=== PATIENT | female | born 1955 | race Caucasian/White ===

== ENCOUNTER → 2017-08-29 | Outpatient (CLI) | payer MEDICARE, OTHER ==
--- NOTE | 2017-08-29 15:01 | RADIOLOGY REPORT (SQ) ---
EXAM DESCRIPTION: FOOT RIGHT COMPLETE COMPLETED DATE/TIME: 08/29/2017 2:48 pm REASON FOR STUDY: NON-PRS CHRONIC ULCER OTH PRT RIGHT FOOT W FAT LAYER EXPOSED J93.9 PNEUMOTHORAX, UNSPECIFIED L97.512 NON-PRS CHRONIC ULCER OTH PRT RIGHT FOOT W FAT LAYER COMPARISON: None. NUMBER OF VIEWS: Three views. TECHNIQUE: AP, lateral and oblique radiographic images acquired of the right foot. LIMITATIONS: None. FINDINGS: Bones are osteopenic. Patient is post transmetatarsal amputation of the great toe. This small stump remains along the base of the 1st metatarsal. No aggressive bony demineralization or periosteal new bone worrisome for ost eomyelitis. There is a soft tissue ulcer with radiopaque ointment plantar aspect ball of foot along the 2nd metat arsal head. There is resorption of the 2nd metatarsal head and base proximal phalanx worrisome for o steomyelitis. There is bony remodeling without aggressive demineralization or periosteal new bone along the 3rd 4th and 5th metatarsals and phalanges likely related to old infection/osteomyelitis Moderate size plantar calcaneal spur. Hindfoot, ankle are unremarkable IMPRESSION: Soft tissue ulcer with radiopaque ointment plantar aspect ball of foot along the 2nd met atarsal head. Resorption of the 2nd metatarsal head and base proximal phalanx worrisome for osteomye litis TECHNICAL DOCUMENTATION: JOB ID: [id number] [employer]- All Rights Reserved Reading location - IP/workstation name: [email or web address]
--- NOTE | 2017-08-29 15:05 | RADIOLOGY REPORT (SQ) ---
EXAM DESCRIPTION: CHEST PA/LATERAL COMPLETED DATE/TIME: 08/29/2017 2:48 pm REASON FOR STUDY: PNEUMOTHORAX,UNSPECIFIED COMPARISON: None. EXAM PARAMETERS: NUMBER OF VIEWS: two views TECHNIQUE: Digital Frontal and Lateral radiographic views of the chest acquired. RADIATION DOSE: NA LIMITATIONS: none FINDINGS: LUNGS AND PLEURA: No opacities, masses or pneumothorax. No pleural effusion. MEDIASTINUM AND HILAR STRUCTURES: No masses or contour abnormalities. HEART AND VASCULAR STRUCTURES: Heart normal size. No evidence for failure. BONES: Mild convex rightward thoracic curvature HARDWARE: None in the chest. OTHER: No other significant finding. IMPRESSION: NO SIGNIFICANT RADIOGRAPHIC FINDING IN THE CHEST. NO PNEUMOTHORAX TECHNICAL DOCUMENTATION: JOB ID: [id number] [employer]- All Rights Reserved Reading location - IP/workstation name: [email or web address]
== END ==
LOC: OD 14:30
PROVIDERS: ATTEND Preventive Medicine Undersea and Hyperbaric Medicine
DX: J93.9 Pneumothorax, unspecified (principal); L97.512 Non-pressure chronic ulcer of other part of right foot with fat layer exposed
CPT/HCPCS: 71046

== ENCOUNTER → 2017-09-03 | Outpatient (CLI) | payer MEDICARE, OTHER ==
--- NOTE | 2017-09-04 18:08 | XCELERA REPORT ---
[address] [address] Lower Extremity Arterial Evaluation Name: MARCELA MARSHALL Age: 62 yrs Gender: Female : 1955 Patient Status: Outpatient Patient Location: Study Date: 09/03/2017 08:08 AM Procedure: A color flow and duplex scan of the lower extremity arteries was performed bilaterally with velocity and waveform anaylsis. Reason For Study: RT FOOT ULCER Ordering Physician: JING MORENO Performed By: Phill Cisneros Measurements and Calculations Right Left CREATIVE SERVICES COORDINATOR PSV 71.7 71.7 cm/sec Prox PFA PSV -53.1 -45.2 cm/sec Prox SFA PSV 88.4 77.7 cm/sec Mid SFA PSV -81.0 -87.7 cm/sec Dist SFA PSV -162.4 -103.7 cm/sec Prox Pop A PSV 71.2 cm/sec Dist YAAHIRA PSV 96.2 cm/sec Dist PAYMENT ANALYST PSV 130.7 cm/sec Onel Pedis PSV 45.6 cm/sec Right Side Arterial Evaluation Normal velocity and triphasic waveforms noted from the Common Femoral artery to the infrageniculate vessels. Biphasic in the Dorsalis Pedis. 0-19% stenosis noted. Dorsalis Pedis. Ankle Brachial index is 1.2. Left Side Arterial Evaluation Normal velocity and triphasic waveforms noted from the Common Femoral artery to the Femoral artery. Below Knee amputation noted. 0% stenosis noted. Dorsalis Pedis. Ankle Brachial index not applicable. Interpretation Summary Mild hemodynamically significant lesions in the right lower extremity only, on duplex imaging, at rest. Normal findings in the remaining left lower extremity. : JING MORENO > Rayo Steen
== END ==
LOC: SP 07:28
PROVIDERS: ATTEND Preventive Medicine Undersea and Hyperbaric Medicine
DX: L97.512 Non-pressure chronic ulcer of other part of right foot with fat layer exposed (principal)
CPT/HCPCS: 93922; 93925

== ENCOUNTER → 2017-10-04 | Outpatient (CLI) | payer MEDICARE, OTHER ==
--- NOTE | 2017-10-04 15:06 | RADIOLOGY REPORT (SQ) ---
EXAM DESCRIPTION: FOOT RIGHT COMPLETE COMPLETED DATE/TIME: 10/04/2017 12:42 pm REASON FOR STUDY: NON-PRS CHRONIC ULCER OTH PRT RIGHT FOOT W FAT LAYER EXPOSED L97.512 NON-PRS LEAD WELDER JOEL ULCER OTH PRT RIGHT FOOT W FAT LAYER E11.621 TYPE 2 DIABETES MELLITUS WITH FOOT ULCER COMPARISON: 08/29/2017 NUMBER OF VIEWS: Three views. TECHNIQUE: AP, lateral and oblique without weight bearing radiographic images acquired of the right foot. LIMITATIONS: None. FINDINGS: MINERALIZATION: Osteopenia. BONES: Chronic deformity which is stable. No findings to suggest osteomyelitis. Partial amputation o f the 1st ray. JOINTS: No erosions. No ketan-articular osteopenia. No chondrocalcinosis. SOFT TISSUES: No swelling. No calcifications. OTHER: No other significant finding. IMPRESSION: No evidence for osteomyelitis. Stable chronic deformity. TECHNICAL DOCUMENTATION: JOB ID: [id number] [employer]- All Rights Reserved Reading location - IP/workstation name: [email or web address]
== END ==
LOC: OD 12:29
PROVIDERS: ATTEND Preventive Medicine Undersea and Hyperbaric Medicine
DX: E11.621 Type 2 diabetes mellitus with foot ulcer (principal); L97.512 Non-pressure chronic ulcer of other part of right foot with fat layer exposed

== ENCOUNTER 2018-09-13 14:51 | Emergency (ER) | payer MEDICARE, OTHER ==
--- NOTE | 2018-09-13 15:24 | ER Document Report ---
ED General - General Chief Complaint: Loss of Vision Stated Complaint: BLURRED VISION Time Seen by Provider: 09/13/18 15:11 Primary Care Provider: JING MORENO DPM [ACTIVE STAFF] - Follow up as needed Notes: 63-year-old female patient emergency department chief complaint of woke up this morning blind. Patient has diabetes, hypertension. Has had some issues with the eyes before but she does not know what it was called. States that she has no pain. Denies any weakness or other issues. Denies any headache. Denies any weakness of the upper or lower extremities. Has never had a stroke. TRAVEL OUTSIDE OF THE [place] IN LAST 30 DAYS: No - HPI Onset: This morning Onset/Duration: Worse Quality of pain: No pain Severity: Severe Pain Level: Denies Associated symptoms: None - Related Data Allergies/Adverse Reactions: No Known Allergies Allergy (Verified 09/13/18 14:56) Past Medical History - General Information source: Patient - Social History Smoking Status: Smoker,Current Status Unk Frequency of alcohol use: None Drug Abuse: None Lives with: Family Family History: Reviewed & Not Pertinent - Medical History Notes: Diabetes, hypertension, diabetic eye related issues Review of Systems - Review of Systems Notes: Constitutional: denies: Chills, Diaphoresis, Fever, Malaise, Weakness EENT: No difficulty with hearing, no difficulty swallowing. Does complain of painless bilateral vision loss. Cardiovascular: denies: Palpitations, Heart racing, Orthopnea, Dyspnea, Chest pain Respiratory: denies: Cough, Hurts to breathe, Wheezing, Shortness of breath Gastrointestinal: denies: Abdominal pain, Diarrhea, Nausea, Vomiting, Black stools, bright red blood in stool Genitourinary: denies: Burning, Dysuria, Discharge, Frequency, Flank pain, Hematuria Musculoskeletal: denies: Joint pain, Joint swelling, Muscle pain, Muscle stiffness, back pain Hematologic/Lymphatic: denies: Anemia, Easy bleeding, Easy bruising, Blood clots Neurological/Psychological: denies: Confusion, Dementia, Depression, Loss of consciousness Skin: No lesions, no masses, no skin breakdown, no abscesses Physical Exam - Vital signs Vitals: Temp Pulse Resp BP Pulse Ox 99.1 F 124 H 20 179/84 H 95 09/13/18 15:02 09/13/18 15:02 09/13/18 15:02 09/13/18 15:02 09/13/18 15:02 Interpretation: Hypertensive - General General appearance: Appears well, Alert - HEENT Head: Normocephalic, Atraumatic Eyes: Normal Pupils: PERRL Notes: Patient has cataract surgery. There appears to be more of a hyper red appearance to the bilateral retina. - Respiratory Respiratory status: No respiratory distress Chest status: Nontender Breath sounds: Normal Chest palpation: Normal - Cardiovascular Rhythm: Regular Heart sounds: Normal auscultation Murmur: No - Abdominal Inspection: Normal Distension: No distension Bowel sounds: Normal Tenderness: Nontender Organomegaly: No organomegaly - Back Back: Normal, Nontender - Extremities General upper extremity: Normal inspection, Nontender, Normal color, Normal ROM, Normal temperature General lower extremity: Normal inspection, Nontender, Normal color, Normal ROM, Normal temperature, Normal weight bearing. No: Luiza's sign - Neurological Neuro grossly intact: Yes Cognition: Normal Orientation: AAOx4 Nebo Coma Scale Eye Opening: Spontaneous Nebo Coma Scale Verbal: Oriented Nebo Coma Scale Motor: Obeys Commands Nebo Coma Scale Total: 15 Speech: Normal Cranial nerves: Normal Cerebellar coordination: Normal Motor strength normal: LUE, RUE, LLE, RLE Additional motor exam normals: Equal vest baster Sensory: Normal - Psychological Associated symptoms: Normal affect, Normal mood - Skin Skin Temperature: Warm Skin Moisture: Dry Skin Color: Normal Course - Re-evaluation Re-evalutation: 09/13/18 19:11 Laboratory 09/13/18 09/13/18 09/13/18 15:24 15:24 15:24 WBC 5.8 RBC 4.72 Hgb 14.9 Hct 42.6 MCV 90 MCH 31.5 MCHC 34.9 RDW 13.5 Plt Count 274 Seg Neutrophils % 64.0 Lymphocytes % 25.9 Monocytes % 6.2 Eosinophils % 3.1 Basophils % 0.8 Absolute Neutrophils 3.7 Absolute Lymphocytes 1.5 Absolute Monocytes 0.4 Absolute Eosinophils 0.2 Absolute Basophils 0.0 PT 12.4 INR 0.88 APTT 29.3 Sodium 138.9 Potassium 4.3 Chloride 102 Carbon Dioxide 26 Anion Gap 11 BUN 20 Creatinine 0.64 Est GFR ( Amer) > 60 Est GFR (Non-Af Amer) > 60 Glucose 295 H POC Glucose Calcium 10.5 H Total Bilirubin 0.6 Direct Bilirubin 0.4 Neonat Total Bilirubin Not Reportable Neonat Direct Bilirubin Not Reportable Neonat Indirect Bili Not Reportable AST 37 H ALT 37 Alkaline Phosphatase 69 Creatine Kinase 26 L CK-MB (CK-2) Troponin I Total Protein 7.1 Albumin 4.3 09/13/18 09/13/18 15:24 15:35 WBC RBC Hgb Hct MCV MCH MCHC RDW Plt Count Seg Neutrophils % Lymphocytes % Monocytes % Eosinophils % Basophils % Absolute Neutrophils Absolute Lymphocytes Absolute Monocytes Absolute Eosinophils Absolute Basophils PT INR APTT Sodium Potassium Chloride Carbon Dioxide Anion Gap BUN Creatinine Est GFR ( Amer) Est GFR (Non-Af Amer) Glucose POC Glucose 293 H Calcium Total Bilirubin Direct Bilirubin Neonat Total Bilirubin Neonat Direct Bilirubin Neonat Indirect Bili AST ALT Alkaline Phosphatase Creatine Kinase CK-MB (CK-2) 0.25 Troponin I < 0.012 Total Protein Albumin Chest X-Ray 09/13/18 15:09 IMPRESSION: NO ACUTE RADIOGRAPHIC FINDING IN THE CHEST. Head CT 09/13/18 15:09 IMPRESSION: MILD CHRONIC CHANGES OF ATROPHY AND MICROVASCULAR ISCHEMIA. NO ACUTE PROCESS. EVIDENCE OF ACUTE STROKE: NO. Head MRI 09/13/18 15:40 IMPRESSION: 1. No acute intracranial findings. 2. Minimal chronic microvascular ischemic disease. EVIDENCE OF ACUTE STROKE: NO. Bilateral tonometry performed. Pressures are 17 bilaterally. I am more concerned about a retinal vein occlusion. Will attempt to contact ophthalmology in [place] as patient has seen a doctor there. 09/13/18 19:13 09/13/18 19:[address] Guillen at this [facility] who has seen the patient in the past. He states that it has been over 2 years since he has seen her and he has nothing to offer at this time. He is not wardrobe consultant and request that I call the on-call box office manager. Waiting for callback from on- call box office manager at this time. 09/13/18 20:05 I did speak with Dr. Bowers at [facility]. He has accepted the patient for transfer. Once patient sent to the ER. I have spoken with the ER physician, Dr. Brooks. 09/13/18 20:08 09/13/18 20:56 Transport is here. Patient remained stable for transport at this time. - Vital Signs Vital signs: Temp Pulse Resp BP Pulse Ox 99.1 F 90 22 H 164/82 H 93 09/13/18 15:02 09/13/18 18:00 09/13/18 20:22 09/13/18 20:22 09/13/18 20:22 - Laboratory Result Diagrams: 09/13/18 15:24 09/13/18 15:24 Laboratory results interpreted by me: 09/13/18 09/13/18 15:24 15:35 Glucose 295 H POC Glucose 293 H Calcium 10.5 H AST 37 H Creatine Kinase 26 L - EKG Interpretation by Me EKG shows normal: Intervals, QRS Complexes, ST-T Waves. abnormal: [place] - Right axis deviation Rate: Tachycardia Critical Care Note - Critical Care Note Total time excluding time spent on procedures (mins): 60 Comments: Acute vision loss, hypertensive, hyper glycemic, consultation with specialist, coordination of transfer of care. Discharge - Discharge Clinical Impression: Bilateral visual loss Hyperglycemia due to type 2 diabetes mellitus Qualifiers: Diabetes mellitus chcf insulin use: with chcf use Qualified Code(s): E11.65 - Type 2 diabetes mellitus with hyperglycemia Hypertension Qualifiers: Hypertension type: unspecified Qualified Code(s): I10 - Essential (primary) hypertension Condition: Good Disposition: [facility] Referrals: JING MORENO DPM [ACTIVE STAFF] - Follow up as needed
--- NOTE | 2018-09-13 15:30 | RADIOLOGY REPORT (SQ) ---
EXAM DESCRIPTION: CT HEAD WITHOUT COMPLETED DATE/TIME: 09/13/2018 3:17 pm REASON FOR STUDY: t1 stroke alert loss of vision COMPARISON: None. TECHNIQUE: Axial images acquired through the brain without intravenous contrast. Images reviewed wi th bone, brain and subdural windows. Additional sagittal and coronal reconstructions were generated. Images stored on PACS. All CT scanners at this facility use dose modulation, iterative reconstruction, and/or weight based d osing when appropriate to reduce radiation dose to as low as reasonably achievable (ALARA). [facility]: Dose Right [facility]: CareDose [facility]: Dose Right [facility]: Teradose 4D [facility]: Smart CompassMD RADIATION DOSE: CT Rad equipment meets quality standard of care and radiation dose reduction techniq ues were employed. CTDIvol: 53.2 mGy. DLP: 964 mGy-cm. mGy. LIMITATIONS: None. FINDINGS: VENTRICLES: Prominent. CEREBRUM: No masses. No hemorrhage. No midline shift. Areas of low density in the white matter mos t likely due to chronic micro-vascular ischemic change. No evidence for acute infarction. CEREBELLUM: No masses. No hemorrhage. No alteration of density. No evidence for acute infarction. EXTRAAXIAL SPACES: Mild age-related involutional change. No fluid collections. No masses. ORBITS AND GLOBE: No intra- or extraconal masses. Normal contour of globe without masses. CALVARIUM: No fracture. PARANASAL SINUSES: No fluid or mucosal thickening. SOFT TISSUES: No mass or hematoma. OTHER: No other significant finding. IMPRESSION: MILD CHRONIC CHANGES OF ATROPHY AND MICROVASCULAR ISCHEMIA. NO ACUTE PROCESS. EVIDENCE OF ACUTE STROKE: NO. COMMENT: Pertinent positive or negative findings of the imaging study reported as a CRITICAL EXAM tej RILEY DO at15:23 on 09/13/2018. Category of Critical Exam: Stroke alert TECHNICAL DOCUMENTATION: JOB ID: [id number] Quality ID # [id number]: Final reports with documentation of one or more dose reduction techniques (e.g., Au tomated exposure control, adjustment of the mA and/or kV according to patient size, use of iterative reconstruction technique) 2010 [employer]- All Rights Reserved Reading location - IP/workstation name: [email or web address]
[2018-09-13 15:41] LABS: ABSOLUTE EOSINOPHILS # (AUTO) 0.2 10^3/uL (0.0-0.6); ABSOLUTE LYMPHOCYTES (AUTO) 1.5 10^3/uL (0.5-4.7); ABSOLUTE MONOCYTES (AUTO) 0.4 10^3/uL (0.1-1.4); ABSOLUTE NEUT (AUTO) 3.7 10^3/uL (1.7-8.2); BASOPHILS % (AUTO) 0.8 % (0-2); EOSINOPHILS % (AUTO) 3.1 % (0-6); HEMATOCRIT 42.6 % (36.0-47.0); HEMOGLOBIN 14.9 g/dL (12.0-15.5); INTERNATIONAL RATION (INR) 0.88; LYMPHOCYTES % (AUTO) 25.9 % (13-45); MEAN CORPUSCULAR HEMOGLOBIN 31.5 pg (27.0-33.4); MEAN CORPUSCULAR HGB CONC 34.9 g/dL (32.0-36.0); MEAN CORPUSCULAR VOLUME 90 fl (80-97); MONOCYTES % (AUTO) 6.2 % (3-13); PLATELET COUNT 274 10^3/uL (150-450); PROTHROMBIN TIME 12.4 SEC (11.4-15.4); RED BLOOD COUNT 4.72 10^6/uL (3.72-5.28); RED CELL DISTRIBUTION WIDTH 13.5 % (11.5-14.0); TOTAL CELLS COUNTED % (AUTO) 100 %; WHITE BLOOD COUNT 5.8 10^3/uL (4.0-10.5)
[2018-09-13 15:42] LABS: PARTIAL THROMBOPLASTIN TIME 29.3 SEC (23.5-35.8)
--- NOTE | 2018-09-13 15:43 | RADIOLOGY REPORT (SQ) ---
EXAM DESCRIPTION: CHEST SINGLE VIEW COMPLETED DATE/TIME: 09/13/2018 3:20 pm REASON FOR STUDY: t1 stroke alert loss of vision COMPARISON: 08/29/2017 EXAM PARAMETERS: NUMBER OF VIEWS: One view. TECHNIQUE: Single frontal radiographic view of the chest acquired. RADIATION DOSE: NA LIMITATIONS: None. FINDINGS: LUNGS AND PLEURA: Chronic elevation right diaphragm. No opacities, masses or pneumothorax . No pleural effusion. MEDIASTINUM AND HILAR STRUCTURES: No masses. Contour normal. HEART AND VASCULAR STRUCTURES: Heart normal in size. Normal vasculature. BONES: No acute findings. HARDWARE: None in the chest. OTHER: No other significant finding. IMPRESSION: NO ACUTE RADIOGRAPHIC FINDING IN THE CHEST. TECHNICAL DOCUMENTATION: JOB ID: [id number] [employer]- All Rights Reserved Reading location - IP/workstation name: [email or web address]
--- NOTE | 2018-09-13 16:02 | EKG REPORT ---
SEVERITY:- ABNORMAL ECG - SINUS TACHYCARDIA RIGHT AXIS DEVIATION PAC PROBABLE INFERIOR INFARCT, AGE INDETERMINATE CONSIDER ANTERIOR INFARCT : Confirmed by: Mike Coates MD 13-Sep-2018 16:01:09
[2018-09-13 16:06] LABS: ALANINE AMINOTRANSFERASE 37 U/L (9-52); ALBUMIN 4.3 g/dL (3.5-5.0); ALKALINE PHOSPHATASE 69 U/L (38-126); ANION GAP 11 (5-19); ASPARTATE AMINO TRANSFERASE 37 U/L (14-36); BILIRUBIN,DIRECT 0.4 mg/dL (0.0-0.4); BILIRUBIN,TOTAL 0.6 mg/dL (0.2-1.3); BLOOD UREA NITROGEN 20 mg/dL (7-20); CALCIUM 10.5 mg/dL (8.4-10.2); CARBON DIOXIDE 26 mmol/L (22-30); CHLORIDE 102 mmol/L (98-107); CREATINE KINASE 26 U/L (30-135); GLUCOSE 295 mg/dL (75-110); POTASSIUM 4.3 mmol/L (3.6-5.0); SODIUM 138.9 mmol/L (137-145); TOTAL PROTEIN 7.1 g/dL (6.3-8.2)
[2018-09-13 16:15] LABS: CREATINE KINASE MB 0.25 ng/mL (<4.55)
[2018-09-13 16:16] LABS: TROPONIN I < 0.012 ng/mL
[2018-09-13] MEDS ORDERED: ASPIRIN 81 MG TABLET, CHEWABLE PO ONE (16:41)
--- NOTE | 2018-09-13 17:42 | RADIOLOGY REPORT (SQ) ---
EXAM DESCRIPTION: MRI HEAD WITHOUT COMPLETED DATE/TIME: 09/13/2018 5:30 pm REASON FOR STUDY: bilateral vision loss COMPARISON: Same day CT head TECHNIQUE: Multiplanar imaging includes non-contrasted T1, T2, FLAIR, and diffusion with ADC map seq uences. Images stored on PACS. LIMITATIONS: None. FINDINGS: ANATOMY: No anomalies. Normal vascular flow voids. Pituitary fossa normal. CSF SPACES: Normal in size and contour. No hemorrhage. CEREBRUM: Sulci and gyri normal in size and contour. Minimal FLAIR/ T2 hyperintense signal in the martin pratentorial white matter. . No evidence of hemorrhage, mass, or extraaxial fluid collection. POSTERIOR FOSSA: No signal alteration. No hemorrhage. No edema, masses or mass effect. Internal isabela tory canals, cerebello-pontine angles, mastoids normal. DIFFUSION IMAGING: Negative for acute or sub-acute infarction. ORBITS: No masses. Globes normal. Normal signal within the optic nerves. PARANASAL SINUSES: No fluid levels. Mucosa normal. OTHER: Trace amount of fluid within left mastoid air cells. IMPRESSION: 1. No acute intracranial findings. 2. Minimal chronic microvascular ischemic disease. EVIDENCE OF ACUTE STROKE: NO. TECHNICAL DOCUMENTATION: JOB ID: [id number] [employer]- All Rights Reserved Reading location - IP/workstation name: [email or web address]
[2018-09-13] MEDS ORDERED: TETRACAINE HCL 0.5% OPH SOLN 4 ML ONE (18:33)
[2018-09-13] MEDS ORDERED: TETRACAINE HCL 0.5% OPH SOLN 4 ML OD ONE (18:49)
[2018-09-13] MEDS ORDERED: ENALAPRIL MALEATE 10 MG TABLET PO ONE (19:14)
[2018-09-13] MEDS ORDERED: NORMAL SALINE 1000 ML 1,000 ML IV ONE (19:14)
[2018-09-13] MEDS ORDERED: METFORMIN HCL 500 MG TABLET PO ONE (19:14)
[2018-09-13 20:24] VITALS: BP 164/82
== END 2018-09-13 21:10 | disposition short-term general hospital (02) ==
LOC: ER 14:51
DX: H54.3 Unqualified visual loss, both eyes (principal); E11.65 Type 2 diabetes mellitus with hyperglycemia; I10 Essential (primary) hypertension
CPT/HCPCS: 93005; 99291; 96360; 36415; 82553; 82962; 82550; 85025; 85610; 85730; 80053; 84484; 70551; 71045; 70450; 93010; A9270 ×3; J7030; J3490

== ENCOUNTER 2019-12-27 03:26 | Inpatient (IN) | payer MEDICARE, OTHER ==
[2019-12-27 04:25] LABS: ABSOLUTE BASOPHILS # (AUTO) 0.1 10^3/uL (0.0-0.2); ABSOLUTE EOSINOPHILS # (AUTO) 0.2 10^3/uL (0.0-0.6); ABSOLUTE LYMPHOCYTES (AUTO) 2.1 10^3/uL (0.5-4.7); ABSOLUTE NEUT (AUTO) 9.6 10^3/uL (1.7-8.2); EOSINOPHILS % (AUTO) 1.7 % (0-6); HEMATOCRIT 41.7 % (36.0-47.0); HEMOGLOBIN 14.1 g/dL (12.0-15.5); LYMPHOCYTES % (AUTO) 16.3 % (13-45); MEAN CORPUSCULAR HEMOGLOBIN 30.4 pg (27.0-33.4); MEAN CORPUSCULAR HGB CONC 33.8 g/dL (32.0-36.0); MEAN CORPUSCULAR VOLUME 90 fl (80-97); MONOCYTES % (AUTO) 7.9 % (3-13); PLATELET COUNT 423 10^3/uL (150-450); RED BLOOD COUNT 4.63 10^6/uL (3.72-5.28); RED CELL DISTRIBUTION WIDTH 13.5 % (11.5-14.0); SEGMENTED NEUTROPHILS % (AUTO) 73.1 % (42-78); TOTAL CELLS COUNTED % (AUTO) 100 %; WHITE BLOOD COUNT 13.1 10^3/uL (4.0-10.5)
[2019-12-27 04:51] LABS: ALKALINE PHOSPHATASE 87 U/L (38-126); ANION GAP 12 (5-19); ASPARTATE AMINO TRANSFERASE 24 U/L (14-36); BILIRUBIN,TOTAL 0.4 mg/dL (0.2-1.3); BLOOD UREA NITROGEN 31 mg/dL (7-20); CALCIUM 9.6 mg/dL (8.4-10.2); CARBON DIOXIDE 22 mmol/L (22-30); CHLORIDE 99 mmol/L (98-107); GLUCOSE 230 mg/dL (75-110); TOTAL PROTEIN 7.3 g/dL (6.3-8.2)
[2019-12-27] MEDS ORDERED: VANCOMYCIN HCL INJ 1000 MG VIAL IV ONE (05:40)
[2019-12-27] MEDS ORDERED: PIPERACILLIN/TAZOBACTAM 3.375 GM VIAL IV ONE (05:41)
--- NOTE | 2019-12-27 06:31 | RADIOLOGY REPORT (SQ) ---
EXAM DESCRIPTION: XR FINGERS COMPLETED DATE/TME: 12/27/2019 05:37 CLINICAL HISTORY: 64 years, Female, INFECTED RIGHT THUMB COMPARISON: None. NUMBER OF VIEWS: Three TECHNIQUE: Three views of the right thumb LIMITATIONS: None. FINDINGS: Bones are demineralized. There is no acute fracture, dislocation, erosion, periosteal reaction. There is soft tissue swelling. There is a 1.7 x 1.2 x 0.8 cm soft tissue density along the radial volar aspect of the left thumb which may represent a hematoma or abscess. IMPRESSION: No radiographic evidence of osteomyelitis. Soft tissue swelling with a soft tissue density which may represent a hematoma or abscess. copyright 2010 [employer] All Rights Reserved
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
[2019-12-27] MEDS ORDERED: LIDOCAINE 1% INJ-PF (10 MG/ML) 30 ML SDV INJ ONE (07:49)
[2019-12-27] MEDS ORDERED: ONDANSETRON HCL INJ/PF 4 MG/2 ML SDV IV PRN (10:04)
[2019-12-27] MEDS ORDERED: OXYCODONE-ACETAMINOPHEN 5-325 MG TABLET PO PRN (10:04)
[2019-12-27] MEDS ORDERED: DEXTROSE 50%-WATER 25 GM/50 ML DISP.SYRIN IV PRN ×2 (10:09)
[2019-12-27] MEDS ORDERED: DEXTROSE 40% GEL 15 GM TUBE PO PRN ×2 (10:09)
[2019-12-27] MEDS ORDERED: GLUCAGON,HUMAN RECOMB 1 MG INJ IM PRN (10:09)
--- NOTE | 2019-12-27 10:32 | PDOC H&P ---
History of Present Illness Admission Date/PCP: 12/27/2019 Patient complains of: Came with complaints of right thumb burn followed by infection. History of Present Illness: MARCELA MARSHALL is a 64 year old female with history of type 2 diabetes mellitus on insulin, obesity, hypertension, hypercholesterolemia, left BKA, right great toe amputation came to the emergency room with complaints of right thumb born 9 days ago. Noticed infection of the right thumb for the last 4 days. Decided to came to the emergency room for further evaluation in the emergency room debridement of the wound was done. ER physician noticed pussy material draining. Started on IV vancomycin and Zosyn medical consult was requested for further management. X-rays negative for osteo-. Dr. Almonte had a brief look at the patient as per him no need for surgical intervention at this time. Past Medical History Cardiac Medical History: Reports: Hypertension Endocrine Medical History: Reports: Diabetes Mellitus Type 2 Past Surgical History Past Surgical History: Reports: Orthopedic Surgery - Left BKA. Right Great toe amputation. Social History Lives with: Family Smoking Status: Never Smoker Electronic Cigarette use?: No - Advance Directive Resuscitation Status: Full Code Family History Family History: Reviewed & Not Pertinent Parental Family History Reviewed: Yes - Diabetes and hypertension Children Family History Reviewed: Yes Sibling(s) Family History Reviewed.: Yes Medication/Allergy Allergies/Adverse Reactions: No Known Allergies Allergy (Verified 09/13/18 14:56) Review of Systems Constitutional: PRESENT: fatigue, weakness. ABSENT: fever(s), headache(s), night sweats Eyes: ABSENT: visual disturbances Ears: ABSENT: hearing changes Nose, Mouth, and Throat: ABSENT: sore throat Respiratory: ABSENT: hemoptysis Gastrointestinal: ABSENT: dysphagia, heartburn, hematemesis Genitourinary: ABSENT: hematuria Musculoskeletal: ABSENT: joint swelling Integumentary: PRESENT: other - rt Thumb wound Neurological: ABSENT: abnormal gait, abnormal speech, confusion, dizziness, focal weakness, syncope Psychiatric: ABSENT: anxiety, depression, homidical ideation, suicidal ideation Endocrine: ABSENT: cold intolerance, heat intolerance, polydipsia, polyuria Hematologic/Lymphatic: ABSENT: easy bleeding, easy bruising Physical Exam Vital Signs: Temp Pulse Resp BP Pulse Ox 98.4 F 90 18 142/68 H 93 12/27/19 03:48 12/27/19 03:32 12/27/19 07:01 12/27/19 07:01 12/27/19 07:01 Intake & Output 12/26/19 12/27/19 12/28/19 06:59 06:59 06:59 Weight 91.2 kg General appearance: PRESENT: no acute distress, cooperative, obese Head exam: PRESENT: atraumatic Eye exam: PRESENT: PERRLA Ear exam: PRESENT: normal external ear exam Mouth exam: PRESENT: neck supple Teeth exam: PRESENT: poor dentation Neck exam: ABSENT: carotid bruit, JVD, lymphadenopathy, thyromegaly Respiratory exam: PRESENT: decreased breath sounds Cardiovascular exam: PRESENT: RRR. ABSENT: diastolic murmur, rubs, systolic murmur Pulses: PRESENT: normal dorsalis pedis pul GI/Abdominal exam: PRESENT: normal bowel sounds, soft. ABSENT: distended, guarding, mass, organolmegaly, rebound, tenderness Rectal exam: PRESENT: deferred Extremities exam: PRESENT: other - rt thumb wrapped in dressing. Neurological exam: PRESENT: alert, awake, oriented to person, oriented to place, oriented to time, oriented to situation, CN II-XII grossly intact. ABSENT: motor sensory deficit Psychiatric exam: PRESENT: appropriate affect, normal mood. ABSENT: homicidal ideation, suicidal ideation Skin exam: PRESENT: dry, intact, warm. ABSENT: cyanosis, rash Results Laboratory Results: 12/27/19 04:00 12/27/19 04:30 12/27/19 12/27/19 12/27/19 04:00 04:00 04:30 WBC 13.1 H RBC 4.63 Hgb 14.1 Hct 41.7 MCV 90 MCH 30.4 MCHC 33.8 RDW 13.5 Plt Count 423 Seg Neutrophils % 73.1 Sodium Cancelled 133.4 L Potassium Cancelled 4.0 Chloride Cancelled 99 Carbon Dioxide Cancelled 22 Anion Gap Cancelled 12 BUN Cancelled 31 H Creatinine Cancelled 0.87 Est GFR ( Amer) Cancelled > 60 Est GFR (Non-Af Amer) Cancelled Glucose Cancelled 230 H Calcium Cancelled 9.6 Total Bilirubin Cancelled 0.4 AST Cancelled 24 Alkaline Phosphatase Cancelled 87 Total Protein Cancelled 7.3 Albumin Cancelled 4.0 Impressions: Finger X-Ray 12/27/19 05:37 IMPRESSION: No radiographic evidence of osteomyelitis. Soft tissue swelling with a soft tissue density which may represent a hematoma or abscess. copyright 2010 [employer]- All Rights Reserved Assessment and Plan - Diagnosis (1) Abscess of thumb, right Is this a current diagnosis for this admission?: Yes Plan: 12/27/19-patient came in with abscess of the right thumb debridement of the wound was done in the emergency room, started on IV vancomycin and Zosyn medical consult was called for admission. Blood cultures are pending. Plan is to continue the IV antibiotic therapy and await for the blood cultures. Started on Percocet 03/12/2025 every 6 as needed. To restart her home medications. GI prophylaxis DVT prophylaxis initiated.WBC count is 13,000, receiving IV antibiotic therapy. (2) HTN (hypertension) Is this a current diagnosis for this admission?: No Plan: 12/27/2019-blood pressure today is 142/68. Stable. Patient is on Ziac, losartan at home plan is to continue the medications during the hospital stay. Looks like Ziac is nonformulary in this hospital. (3) Diabetes Qualifiers: Diabetes mellitus type: type 2 Is this a current diagnosis for this admission?: Yes Plan: 12/27/2019-patient has history of type 2 diabetes mellitus on insulin and m etformin at home. Blood sugar in the ER is 230. Started on insulin sliding scale and Lantus 20 units twice a day. Hemoglobin A1c is requested. Diet exercise weight loss lifestyle modifications discussed with the patient. (4) Obesity (BMI 30.0-34.9) Is this a current diagnosis for this admission?: No Plan: 12/27/2019-patient BMI is more than 32 diet exercise weight loss lifestyle modifications discussed with the patient. (5) Hyponatremia Is this a current diagnosis for this admission?: Yes Plan: 12/27/2019-serum sodium is 133.4 today. Glucose is 230. Corrected glucose within normal limits. (6) History of left below knee amputation Is this a current diagnosis for this admission?: No - Time Anticipated discharge: Home Within: within 72 hours
[2019-12-27] MEDS ORDERED: FENOFIBRATE NANOCRYSTALLIZED 145 MG TABLET PO ONE (11:00)
[2019-12-27] MEDS ORDERED: CETIRIZINE 5 MG TABLET PO ONE (11:00)
[2019-12-27] MEDS ORDERED: IPRATROPIUM/ALBUTEROL 0.5-2.5 MG/3 ML AMPUL NEB ONE (11:00)
[2019-12-27] MEDS ORDERED: PIPERACILLIN/TAZOBACTAM 3.375 GM VIAL IV SCH (12:00)
[2019-12-27] MEDS: INSULIN REG, HUMAN 100 UNIT/ML 3 ML VIAL (PYX) SUBCUT SCH ×3 (12:32→21:47)
[2019-12-27] MEDS: PIPERACILLIN SODIUM/TAZOBACTAM 3.375 GM in NORMAL SALINE 100 ML IV SCH ×2 (14:13→20:42)
[2019-12-27] MEDS: HEPARIN SOD (PORCINE) 5,000 UNIT/ML 1 ML VIAL SUBCUT SCH ×2 (14:14→21:48)
[2019-12-27] MEDS: NORMAL SALINE 1000 ML 1,000 ML IV PRN (16:19)
[2019-12-27] MEDS: VANCOMYCIN HCL 1,000 MG in DEXTROSE 5%-WATER 250 ML IV SCH (17:31)
[2019-12-27] MEDS ORDERED: VANCOMYCIN HCL INJ 1000 MG VIAL IV SCH (18:00)
[2019-12-27] MEDS: ATORVASTATIN CALCIUM 20 MG TABLET PO SCH (21:40)
[2019-12-27] MEDS ORDERED: INSULIN GLARGINE,HUM.REC.ANLOG 1,000 UNIT/10 ML VIAL (PYX) SUBCUT ONE (21:45)
[2019-12-27] MEDS ORDERED: INSULIN REG, HUMAN 100 UNIT/ML 3 ML VIAL (PYX) SUBCUT ONE (22:00)
[2019-12-27] MEDS ORDERED: INSULIN GLARGINE,HUM.REC.ANLOG 1,000 UNIT/10 ML VIAL SUBCUT SCH ×2 (22:00)
[2019-12-28] MEDS: PIPERACILLIN SODIUM/TAZOBACTAM 3.375 GM in NORMAL SALINE 100 ML IV SCH ×4 (02:19→20:29)
[2019-12-28] MEDS: HEPARIN SOD (PORCINE) 5,000 UNIT/ML 1 ML VIAL SUBCUT SCH ×3 (05:46→21:22)
[2019-12-28] MEDS: PANTOPRAZOLE SODIUM 40 MG TABLET.DR PO SCH (05:46)
[2019-12-28] MEDS: VANCOMYCIN HCL 1,000 MG in DEXTROSE 5%-WATER 250 ML IV SCH ×2 (05:47→18:23)
[2019-12-28 06:20] LABS: ABSOLUTE BASOPHILS # (AUTO) 0.1 10^3/uL (0.0-0.2); ABSOLUTE EOSINOPHILS # (AUTO) 0.1 10^3/uL (0.0-0.6); ABSOLUTE LYMPHOCYTES (AUTO) 1.4 10^3/uL (0.5-4.7); ABSOLUTE MONOCYTES (AUTO) 0.7 10^3/uL (0.1-1.4); ABSOLUTE NEUT (AUTO) 4.5 10^3/uL (1.7-8.2); BASOPHILS % (AUTO) 0.8 % (0-2); EOSINOPHILS % (AUTO) 2.1 % (0-6); HEMATOCRIT 38.1 % (36.0-47.0); HEMOGLOBIN 12.9 g/dL (12.0-15.5); LYMPHOCYTES % (AUTO) 21.1 % (13-45); MEAN CORPUSCULAR HEMOGLOBIN 30.6 pg (27.0-33.4); MEAN CORPUSCULAR HGB CONC 33.9 g/dL (32.0-36.0); MEAN CORPUSCULAR VOLUME 90 fl (80-97); MONOCYTES % (AUTO) 10.4 % (3-13); PLATELET COUNT 320 10^3/uL (150-450); RED BLOOD COUNT 4.23 10^6/uL (3.72-5.28); RED CELL DISTRIBUTION WIDTH 13.6 % (11.5-14.0); SEGMENTED NEUTROPHILS % (AUTO) 65.6 % (42-78); TOTAL CELLS COUNTED % (AUTO) 100 %; WHITE BLOOD COUNT 6.8 10^3/uL (4.0-10.5)
[2019-12-28 07:00] LABS: ALBUMIN 3.6 g/dL (3.5-5.0); ALKALINE PHOSPHATASE 74 U/L (38-126); ANION GAP 8 (5-19); ASPARTATE AMINO TRANSFERASE 18 U/L (14-36); BILIRUBIN,TOTAL 0.4 mg/dL (0.2-1.3); BLOOD UREA NITROGEN 22 mg/dL (7-20); CALCIUM 9.2 mg/dL (8.4-10.2); CARBON DIOXIDE 24 mmol/L (22-30); CHLORIDE 104 mmol/L (98-107); GLUCOSE 345 mg/dL (75-110); POTASSIUM 4.5 mmol/L (3.6-5.0); TOTAL PROTEIN 6.7 g/dL (6.3-8.2)
[2019-12-28] MEDS ORDERED: ONDANSETRON HCL INJ/PF 4 MG/2 ML SDV IV PRN (07:30)
[2019-12-28] MEDS: INSULIN REG, HUMAN 100 UNIT/ML 3 ML VIAL (PYX) SUBCUT SCH ×4 (08:31→21:21)
--- NOTE | 2019-12-28 09:32 | PDOC PROGRESS REPORT ---
Subjective Progress Note for:: 12/28/19 Subjective:: 64 year old female with history of type 2 diabetes mellitus on insulin, obesity, hypertension, hypercholesterolemia, left BKA, right great toe amputation came to the emergency room with complaints of right thumb born 9 days ago. Noticed infection of the right thumb for the last 4 days. Decided to came to the emergency room for further evaluation in the emergency room debridement of the wound was done. ER physician noticed pussy material draining. Started on IV vancomycin and Zosyn medical consult was requested for further management. X- rays negative for osteo-. Dr. Almonte had a brief look at the patient as per him no need for surgical intervention at this time. 12/[id number]-gkix-old female admitted with right thumb cellulitis. Receiving IV vancomycin and Zosyn. Blood cultures are pending. Receiving daily dressings. Sugars are high she is receiving Lantus 30 units twice a day and insulin sliding scale. To increase the Lantus to 35 units twice a day and continue the scale. Patient also has chronic wound on the bottom of the right heel. Stage I. Not draining. First of the nurse to do the dry dressings. Reason For Visit: CELLULITIS Physical Exam Vital Signs: Temp Pulse Resp BP Pulse Ox 98.3 F 94 12 113/48 L 95 12/28/19 07:49 12/28/19 07:49 12/28/19 07:49 12/28/19 07:49 12/28/19 07:49 Intake & Output 12/27/19 12/28/19 12/29/19 06:59 06:59 06:59 Intake Total 1530 250 Balance 1530 250 Weight 91.2 kg 73.7 kg General appearance: PRESENT: no acute distress, well-developed Head exam: PRESENT: atraumatic Eye exam: PRESENT: PERRLA Mouth exam: PRESENT: moist, tongue midline Teeth exam: PRESENT: poor dentation Neck exam: ABSENT: carotid bruit, JVD, lymphadenopathy, thyromegaly Respiratory exam: PRESENT: clear to auscultation sushil. ABSENT: rales, rhonchi, wheezes Cardiovascular exam: PRESENT: RRR. ABSENT: diastolic murmur, rubs, systolic murmur GI/Abdominal exam: PRESENT: normal bowel sounds, soft. ABSENT: distended, guarding, mass, organolmegaly, rebound, tenderness Rectal exam: PRESENT: deferred Extremities exam: PRESENT: other - Missing right great toe. Stage I pressure ulcer on the sole of the right foot. Right thumb wrapped in a dressing. pt has a left BKA. Neurological exam: PRESENT: alert, awake, oriented to person, oriented to place, oriented to time, oriented to situation, CN II-XII grossly intact. ABSENT: motor sensory deficit Psychiatric exam: PRESENT: appropriate affect, normal mood. ABSENT: homicidal ideation, suicidal ideation Results Laboratory Results: 12/28/19 05:55 12/28/19 05:55 12/28/19 12/28/19 12/28/19 05:55 05:55 05:55 WBC 6.8 RBC 4.23 Hgb 12.9 Hct 38.1 MCV 90 MCH 30.6 MCHC 33.9 RDW 13.6 Plt Count 320 Seg Neutrophils % 65.6 Sodium 135.9 L Potassium 4.5 Chloride 104 Carbon Dioxide 24 Anion Gap 8 BUN 22 H Creatinine 0.80 Est GFR ( Amer) > 60 Glucose 345 H Calcium 9.2 Magnesium 1.7 Total Bilirubin 0.4 AST 18 Alkaline Phosphatase 74 Total Protein 6.7 Albumin 3.6 TSH 1.08 12/28/19 05:55 NT-Pro-B Natriuret Pep 103 Impressions: Finger X-Ray 12/27/19 05:37 IMPRESSION: No radiographic evidence of osteomyelitis. Soft tissue swelling with a soft tissue density which may represent a hematoma or abscess. copyright 2010 [employer]- All Rights Reserved Assessment and Plan - Diagnosis (1) Abscess of thumb, right Is this a current diagnosis for this admission?: Yes Plan: 12/27/19-patient came in with abscess of the right thumb debridement of the wound was done in the emergency room, started on IV vancomycin and Zosyn medical consult was called for admission. Blood cultures are pending. Plan is to continue the IV antibiotic therapy and await for the blood cultures. Started on Percocet 03/12/2025 every 6 as needed. To restart her home medications. GI prophylaxis DVT prophylaxis initiated.WBC count is 13,000, receiving IV antib iotic therapy. 12/28/2019-patient is receiving IV Zosyn and vancomycin, blood cultures are pending. Receiving daily dressings. No evidence of osteomyelitis. (2) HTN (hypertension) Is this a current diagnosis for this admission?: No Plan: 12/27/2019-blood pressure today is 142/68. Stable. Patient is on Ziac, losartan at home plan is to continue the medications during the hospital stay. Looks like Ziac is nonformulary in this hospital. 12/28/2019-blood pressure today is 13/50. Stable. Plan is to continue losartan at this time. (3) Diabetes Qualifiers: Diabetes mellitus type: type 2 Is this a current diagnosis for this admission?: Yes Plan: 12/27/2019-patient has history of type 2 diabetes mellitus on insulin and metfo rmin at home. Blood sugar in the ER is 230. Started on insulin sliding scale and Lantus 20 units twice a day. Hemoglobin A1c is requested. Diet exercise weight loss lifestyle modifications discussed with the patient. 12/28/2019-latest blood sugar is 346, hemoglobin A1c is 11.2. Presently on Heber tus 30 units twice a day and insulin sliding scale. Plan is to increase the dose of Lantus to 35 units twice a day and to continue to closely monitor the blood work. (4) Obesity (BMI 30.0-34.9) Is this a current diagnosis for this admission?: No Plan: 12/27/2019-patient BMI is more than 32 diet exercise weight loss lifestyle clifford fications discussed with the patient. (5) Hyponatremia Is this a current diagnosis for this admission?: Yes Plan: 12/27/2019-serum sodium is 133.4 today. Glucose is 230. Corrected glucose within normal limits. 12/28/2019-serum sodium is 136 hyponatremia is resolved. (6) History of left below knee amputation Is this a current diagnosis for this admission?: No (7) Pressure ulcer Is this a current diagnosis for this admission?: No Plan: Patient has a pressure ulcer stage wound on the sole right foot. To provide daily dressings. - Time Anticipated discharge: Home Within: within 72 hours
[2019-12-28] MEDS: MULTIVITAMIN TABLET PO SCH (09:54)
[2019-12-28] MEDS: ASPIRIN 81 MG TABLET, CHEWABLE PO SCH (09:54)
[2019-12-28] MEDS: LOSARTAN POTASSIUM 25 MG TABLET PO SCH (09:54)
[2019-12-28] MEDS: INSULIN GLARGINE,HUM.REC.ANLOG 1,000 UNIT/10 ML VIAL SUBCUT SCH ×2 (09:55→21:22)
[2019-12-28] MEDS: NORMAL SALINE 1000 ML 1,000 ML IV PRN (13:37)
[2019-12-28] MEDS: ACETAMINOPHEN 325 MG TABLET PO PRN ×2 (15:44→22:18)
[2019-12-28 18:25] LABS: VANCOMYCIN,TROUGH 11.2 ug/mL (5.0-20.0)
[2019-12-28] MEDS: ATORVASTATIN CALCIUM 20 MG TABLET PO SCH (21:22)
[2019-12-29] MEDS: PIPERACILLIN SODIUM/TAZOBACTAM 3.375 GM in NORMAL SALINE 100 ML IV SCH ×4 (02:17→20:36)
[2019-12-29] MEDS: NORMAL SALINE 1000 ML 1,000 ML IV PRN ×2 (02:18→23:46)
[2019-12-29] MEDS: HEPARIN SOD (PORCINE) 5,000 UNIT/ML 1 ML VIAL SUBCUT SCH ×3 (05:09→21:24)
[2019-12-29] MEDS: PANTOPRAZOLE SODIUM 40 MG TABLET.DR PO SCH (05:13)
[2019-12-29] MEDS: VANCOMYCIN HCL 1,000 MG in DEXTROSE 5%-WATER 250 ML IV SCH ×2 (05:13→17:17)
[2019-12-29] MEDS: ACETAMINOPHEN 325 MG TABLET PO PRN ×2 (05:15→14:56)
[2019-12-29] MEDS: INSULIN REG, HUMAN 100 UNIT/ML 3 ML VIAL (PYX) SUBCUT SCH ×4 (08:08→21:24)
[2019-12-29] MEDS: ASPIRIN 81 MG TABLET, CHEWABLE PO SCH (09:23)
[2019-12-29] MEDS: MULTIVITAMIN TABLET PO SCH (09:23)
[2019-12-29] MEDS: INSULIN GLARGINE,HUM.REC.ANLOG 1,000 UNIT/10 ML VIAL SUBCUT SCH (09:24)
[2019-12-29] MEDS: LOSARTAN POTASSIUM 25 MG TABLET PO SCH (09:24)
--- NOTE | 2019-12-29 16:50 | PDOC PROGRESS REPORT ---
Subjective Progress Note for:: 12/29/19 Subjective:: Per previous physician: "64 year old female with history of type 2 diabetes mellitus on insulin, obesity, hypertension, hypercholesterolemia, left BKA, right great toe amputation came to the emergency room with complaints of right thumb born 9 days ago. Noticed infection of the right thumb for the last 4 days. Decided to came to the emergency room for further evaluation in the emergency room debridement of the wound was done. ER physician noticed pussy material draining. Started on IV vancomycin and Zosyn medical consult was requested for further management. X-rays negative for osteo-. Dr. Almonte had a brief look at the patient as per him no need for surgical intervention at this time. 12/[id number]-old female admitted with right thumb cellulitis. Receiving IV vancomycin and Zosyn. Blood cultures are pending. Receiving daily dressings. Sugars are high she is receiving Lantus 30 units twice a day and insulin sliding scale. To increase the Lantus to 35 units twice a day and continue the scale. Patient also has chronic wound on the bottom of the right heel. Stage I. Not draining. First of the nurse to do the dry dressings." 12/28/2021 Patient seems to be doing overall well today though she is somewhat concerned of the ulcer on her right foot and the ulceration of her right thumb. The ulcer on her right heel is actually well beyond stage I and is probably stage II or III, high risk for development of osteomyelitis if he gets much deeper. Patient states that she has never followed with a customer management specialist but is interested in doing this after today's discussion. Blood sugar is notably high today and have increased her Lantus dose by 10 units twice per day. We can also restart her metformin to help with blood sugar control. Patient requested physical therapy consult and I have ordered this. Reason For Visit: CELLULITIS Physical Exam Vital Signs: Temp Pulse Resp BP Pulse Ox 97.3 F 86 17 140/71 H 98 12/29/19 11:28 12/29/19 11:28 12/29/19 11:28 12/29/19 11:28 12/29/19 11:28 Intake & Output 12/28/19 12/29/19 12/30/19 06:59 06:59 06:59 Intake Total 2530 3893 450 Balance 2530 3897 450 Weight 73.7 kg 73.7 kg General appearance: PRESENT: no acute distress, well-developed, well-nourished Head exam: PRESENT: atraumatic, normocephalic Eye exam: PRESENT: conjunctiva pink Mouth exam: PRESENT: moist Respiratory exam: PRESENT: clear to auscultation sushil. ABSENT: rales, rhonchi, wheezes Cardiovascular exam: PRESENT: RRR. ABSENT: diastolic murmur, rubs, systolic murmur GI/Abdominal exam: PRESENT: normal bowel sounds, soft. ABSENT: distended, guarding, mass, organolmegaly, rebound, tenderness Extremities exam: PRESENT: other - Right foot ulcer stage II-III present on admission without drainage Neurological exam: PRESENT: alert, awake, oriented to person, oriented to place, oriented to time, oriented to situation Psychiatric exam: PRESENT: appropriate affect, normal mood Skin exam: PRESENT: dry, warm Results Laboratory Results: 12/28/19 05:55 12/28/19 05:55 12/27/19 04:00 Hand - Right Gram Stain - Final 12/27/19 04:00 Hand - Right Wound Culture - Final Skin Peg Peptostreptococcus Species Clostridium Sp.not Perfringens 12/28/19 05:55 NT-Pro-B Natriuret Pep 103 Impressions: Finger X-Ray 12/27/19 05:37 IMPRESSION: No radiographic evidence of osteomyelitis. Soft tissue swelling with a soft tissue density which may represent a hematoma or abscess. copyright 2010 [employer]- All Rights Reserved Assessment and Plan - Diagnosis (1) Abscess of thumb, right Is this a current diagnosis for this admission?: Yes Plan: Per previous physician: "12/27/19-patient came in with abscess of the right thumb debridement of the wound was done in the emergency room, started on IV vancomycin and Zosyn medical consult was called for admission. Blood cultures are pending. Plan is to continue the IV antibiotic therapy and await for the blood cultures. Started on Percocet 03/12/2025 every 6 as needed. To restart her home medications. GI prophylaxis DVT prophylaxis initiated.WBC count is 13,000, receiving IV antibiotic therapy. 12/28/2019-patient is receiving IV Zosyn and vancomycin, blood cultures are pending. Receiving daily dressings. No evidence of osteomyelitis." 12/29/2019 Thumb ulceration slow to heal. Mild to moderate drainage on bandaging. Reportedly, patient burned her thumb on a hot plate getting out of the microwave Will need follow-up with hand surgery to reevaluate the wound outpatient (2) Pressure ulcer Is this a current diagnosis for this admission?: No Plan: Present on admission Stage II-III wound on the sole right foot. To provide daily dressings. No evidence of probing to bone or osteomyelitis Needs referral back to wound clinic which is treated this wound in the past when it was much worse per patient (3) Diabetes Qualifiers: Diabetes mellitus type: type 2 Is this a current diagnosis for this admission?: Yes Plan: For various physician: "12/27/2019-patient has history of type 2 diabetes mellitus on insulin and metformin at home. Blood sugar in the ER is 230. Started on insulin sliding scale and Lantus 20 units twice a day. Hemoglobin A1c is requested. Diet exercise weight loss lifestyle modifications discussed with the patient. 12/28/2019-latest blood sugar is 346, hemoglobin A1c is 11.2. Presently on Lantus 30 units twice a day and insulin sliding scale. Plan is to increase the dose of Lantus to 35 units twice a day and to continue to closely monitor the blood work." 12/29/2019 Blood sugar still markedly elevated in the mid and upper 300s Increase Lantus by 10 units twice daily Restarted home metformin (4) HTN (hypertension) Is this a current diagnosis for this admission?: No Plan: 12/27/2019-blood pressure today is 142/68. Stable. Patient is on Ziac, losartan at home plan is to continue the medications during the hospital stay. Looks like Ziac is nonformulary in this hospital. 12/28/2019-blood pressure today is 13/50. Stable. Plan is to continue losartan at this time. (5) History of left below knee amputation Is this a current diagnosis for this admission?: No (6) Hyponatremia Is this a current diagnosis for this admission?: Yes Plan: 12/27/2019-serum sodium is 133.4 today. Glucose is 230. Corrected glucose within normal limits. 12/28/2019-serum sodium is 136 hyponatremia is resolved. Resolved (7) Obesity (BMI 30.0-34.9) Is this a current diagnosis for this admission?: No - Time Time Spent with patient: 15-24 minutes Medications reviewed and adjusted accordingly: Yes Anticipated discharge: Home Within: within 72 hours - Inpatient Certification Based on my medical assessment, after consideration of the patient's comorbidities, presenting symptoms, or acuity I expect that the services needed warrant INPATIENT care.: Yes I certify that my determination is in accordance with my understanding of Medicare's requirements for reasonable and necessary INPATIENT services [42 CFR 412.3e].: Yes Medical Necessity: Significant Comorbidiites Make Outpatient Treatment Too Risky, Need Close Monitoring Due to Risk of Patient Decompensation, Need for IV Antibiotics, Risk of Complication if Not Cared For in Hospital, Risk of Diagnosis Which Will Require Inpatient Eval/Care/Monitoring
[2019-12-29] MEDS: ATORVASTATIN CALCIUM 20 MG TABLET PO SCH (21:23)
[2019-12-29] MEDS ORDERED: INSULIN GLARGINE,HUM.REC.ANLOG 1,000 UNIT/10 ML VIAL SUBCUT SCH (22:00)
[2019-12-30] MEDS: PIPERACILLIN SODIUM/TAZOBACTAM 3.375 GM in NORMAL SALINE 100 ML IV SCH ×3 (02:08→14:34)
[2019-12-30] MEDS: HEPARIN SOD (PORCINE) 5,000 UNIT/ML 1 ML VIAL SUBCUT SCH ×2 (05:04→14:35)
[2019-12-30] MEDS: VANCOMYCIN HCL 1,000 MG in DEXTROSE 5%-WATER 250 ML IV SCH (05:04)
[2019-12-30] MEDS: PANTOPRAZOLE SODIUM 40 MG TABLET.DR PO SCH (05:04)
[2019-12-30] MEDS: METFORMIN HCL 500 MG TABLET PO SCH ×2 (07:39→16:23)
[2019-12-30] MEDS: INSULIN REG, HUMAN 100 UNIT/ML 3 ML VIAL (PYX) SUBCUT SCH ×3 (07:39→16:24)
[2019-12-30] MEDS ORDERED: INSULIN GLARGINE,HUM.REC.ANLOG 1,000 UNIT/10 ML VIAL SUBCUT SCH (10:00)
[2019-12-30] MEDS: MULTIVITAMIN TABLET PO SCH (11:02)
[2019-12-30] MEDS: LOSARTAN POTASSIUM 25 MG TABLET PO SCH (11:02)
[2019-12-30] MEDS: ASPIRIN 81 MG TABLET, CHEWABLE PO SCH (11:02)
--- NOTE | 2019-12-30 15:41 | PDOC DISCHARGE SUMMARY ---
Impression - Admit/DC Date/PCP Admission Date/Primary Care Provider: 12/27/19 10:12 Discharge Date: 12/30/19 - Discharge Diagnosis (1) Abscess of thumb, right Is this a current diagnosis for this admission?: Yes (2) Pressure ulcer Is this a current diagnosis for this admission?: No (3) Diabetes Is this a current diagnosis for this admission?: Yes (4) HTN (hypertension) Is this a current diagnosis for this admission?: No (5) History of left below knee amputation Is this a current diagnosis for this admission?: No (6) Hyponatremia Is this a current diagnosis for this admission?: Yes (7) Obesity (BMI 30.0-34.9) Is this a current diagnosis for this admission?: No - Additional Information Resuscitation Status: Full Code Discharge Diet: Diabetic Discharge Activity: Activity As Tolerated, Balance Activity w/Rest Referrals: WOUND CARE [Outside] - 01/13/20 11:00 am Prescriptions: Metformin HCl [Glucophage 500 mg Tablet] 1,000 mg PO BIDACBS #120 tablet Insulin Glargine,Hum.rec.anlog [Lantus Insulin 100 Unit/1 ml 10 ml] 50 unit SUBCUT Q12 #4 vial Pantoprazole Sodium [Protonix [address] Tablet] 40 mg PO Q6AM #30 tablet.dr Home Medications: Aspirin [Aspirin 81 mg Chewable Tablet] 81 mg PO DAILY 12/27/19 Bisoprolol/Hydrochlorothiazide [Ziac 2.5-6.25 mg Tablet] 12/27/19 Cetirizine HCl [Zyrtec 10 mg Tablet] 10 mg PO 12/27/19 Fenofibrate Nanocrystallized [Tricor 145 mg Tablet] 145 mg PO 12/27/19 Losartan Potassium [Cozaar] 12/27/19 Rosuvastatin Calcium [Crestor] 20 mg PO 12/27/19 Insulin Aspart [Novolog Insulin (Aspart) 100 unit/mL] See Protocol SQ ASDIR 30 Days 12/30/19 Insulin Glargine,Hum.rec.anlog [Lantus Insulin 100 Unit/1 ml 10 ml] 50 unit SUBCUT Q12 #4 vial 12/30/19 Metformin HCl [Glucophage 500 mg Tablet] 1,000 mg PO BIDACBS #120 tablet 12/30/19 Multivitamin [Tab-A-Maggie (Multiple Vitamin) Tablet] 1 tab PO DAILY #0 tablet 12/30/19 Pantoprazole Sodium [Protonix [address] Tablet] 40 mg PO Q6AM #30 tablet. 12/30/19 History of Present Illiness History of Present Illness: Primary physician: "MARCELA MARSHALL is a 64 year old female with history of type 2 diabetes mellitus on insulin, obesity, hypertension, hypercholesterolemia, left BKA, right great toe amputation came to the emergency room with complaints of right thumb born 9 days ago. Noticed infection of the right thumb for the last 4 days. Decided to came to the emergency room for further evaluation in the emergency room debridement of the wound was done. ER physician noticed pussy material draining. Started on IV vancomycin and Zosyn medical consult was requested for further management. X-rays negative for osteo-. Dr. Almonte had a brief look at the patient as per him no need for surgical intervention at this time." Hospital Course Hospital Course: Patient measured for right thumb burn with cellulitis/infection as well as right foot diabetic ulcer stage II present on admission. Patient started on vancomycin/Zosyn IV and continue on this until day 4 when she was discharged on Augmentin to complete a 7-day total course. Blood sugars were rather uncontrolled and her Lantus was increased gradually up to 50 units twice daily. Patient states her blood sugar at home is typically in the mid to upper 200s sometimes 300s despite taking her Tresiba and metformin as prescribed. I have stopped her Tresiba and discharged her on the Lantus that appears to be working currently. She also be on sliding scale short acting insulin. She must follow- up with her PCP, make a new appointment with a bobbin cleaner, and return to the wound clinic to have her wounds treated as she has in the past. Patient agreement with plan and voices understanding. Physical Exam Vital Signs: Temp Pulse Resp BP Pulse Ox 97.5 F 105 H 18 115/63 99 12/30/19 11:24 12/30/19 11:24 12/30/19 11:24 12/30/19 11:24 12/30/19 11:24 Intake & Output 12/29/19 12/30/19 12/31/19 06:59 06:59 06:59 Intake Total 3893 2649 820 Balance 3895 2649 820 Weight 73.7 kg 73.7 kg 75.6 kg General appearance: PRESENT: no acute distress, well-developed, well-nourished Head exam: PRESENT: atraumatic, normocephalic Eye exam: PRESENT: conjunctiva pink Mouth exam: PRESENT: moist Respiratory exam: PRESENT: clear to auscultation sushil. ABSENT: rales, rhonchi, wheezes Cardiovascular exam: PRESENT: RRR. ABSENT: diastolic murmur, rubs, systolic murmur GI/Abdominal exam: PRESENT: normal bowel sounds, soft. ABSENT: distended, guarding, mass, organolmegaly, rebound, tenderness Extremities exam: PRESENT: other - Stage II right foot ulcer on plantar aspect present on admission, right thumb burn healing Neurological exam: PRESENT: alert, awake, oriented to person, oriented to place, oriented to time, oriented to situation Psychiatric exam: PRESENT: appropriate affect, normal mood Skin exam: PRESENT: dry, warm Results Laboratory Results: WBC 6.8 10^3/uL (4.0-10.5) 12/28/19 05:55 RBC 4.23 10^6/uL (3.72-5.28) 12/28/19 05:55 Hgb 12.9 g/dL (12.0-15.5) 12/28/19 05:55 Hct 38.1 % (36.0-47.0) 12/28/19 05:55 MCV 90 fl (80-97) 12/28/19 05:55 MCH 30.6 pg (27.0-33.4) 12/28/19 05:55 MCHC 33.9 g/dL (32.0-36.0) 12/28/19 05:55 RDW 13.6 % (11.5-14.0) 12/28/19 05:55 Plt Count 320 10^3/uL (150-450) 12/28/19 05:55 Lymph % (Auto) 21.1 % (13-45) 12/28/19 05:55 Tompkins % (Auto) 10.4 % (3-13) 12/28/19 05:55 Eos % (Auto) 2.1 % (0-6) 12/28/19 05:55 Baso % (Auto) 0.8 % (0-2) 12/28/19 05:55 Absolute Neuts (auto) 4.5 10^3/uL (1.7-8.2) 12/28/19 05:55 Absolute Lymphs (auto) 1.4 10^3/uL (0.5-4.7) 12/28/19 05:55 Absolute Monos (auto) 0.7 10^3/uL (0.1-1.4) 12/28/19 05:55 Absolute Eos (auto) 0.1 10^3/uL (0.0-0.6) 12/28/19 05:55 Absolute Basos (auto) 0.1 10^3/uL (0.0-0.2) 12/28/19 05:55 Seg Neutrophils % 65.6 % (42-78) 12/28/19 05:55 Sodium 135.9 mmol/L (137-145) L 12/28/19 05:55 Potassium 4.5 mmol/L (3.6-5.0) 12/28/19 05:55 Chloride 104 mmol/L (98-107) 12/28/19 05:55 Carbon Dioxide 24 mmol/L (22-30) 12/28/19 05:55 Anion Gap 8 (5-19) 12/28/19 05:55 BUN 22 mg/dL (7-20) H 12/28/19 05:55 Creatinine 0.80 mg/dL (0.52-1.25) 12/28/19 05:55 Est GFR ( Amer) > 60 (>60) 12/28/19 05:55 Est GFR (Non-Af Amer) Cancelled 12/27/19 04:00 Est GFR (MDRD) Non-Af > 60 (>60) 12/28/19 05:55 Glucose 345 mg/dL (75-110) H 12/28/19 05:55 POC Glucose 211 mg/dL (70-110) H 12/30/19 11:26 Hemoglobin A1c % 11.2 % (4.7-6.0) H 12/28/19 05:55 Calcium 9.2 mg/dL (8.4-10.2) 12/28/19 05:55 Magnesium 1.7 mg/dL (1.6-2.3) 12/28/19 05:55 Total Bilirubin 0.4 mg/dL (0.2-1.3) 12/28/19 05:55 Direct Bilirubin 0.0 mg/dL (0.0-0.4) 12/28/19 05:55 Neonat Total Bilirubin Not Reportable 12/28/19 05:55 Neonat Direct Bilirubin Not Reportable 12/28/19 05:55 Neonat Indirect Bili Not Reportable 12/28/19 05:55 AST 18 U/L (14-36) 12/28/19 05:55 ALT 11 U/L (<35) 12/28/19 05:55 Alkaline Phosphatase 74 U/L (38-126) 12/28/19 05:55 NT-Pro-B Natriuret Pep 103 pg/mL (<125) 12/28/19 05:55 Total Protein 6.7 g/dL (6.3-8.2) 12/28/19 05:55 Albumin 3.6 g/dL (3.5-5.0) 12/28/19 05:55 EGFR Cancelled 12/27/19 04:00 TSH 1.08 uIU/mL (0.47-4.68) 12/28/19 05:55 Time Trough Drawn 1721 12/28/19 17:21 Vancomycin Trough 11.2 ug/mL (5.0-20.0) 12/28/19 17:21 12/28/19 05:55 NT-Pro-B Natriuret Pep 103 Impressions: Finger X-Ray 12/27/19 05:37 IMPRESSION: No radiographic evidence of osteomyelitis. Soft tissue swelling with a soft tissue density which may represent a hematoma or abscess. copyright 2010 [employer]- All Rights Reserved Plan Plan of Treatment: Follow-up with PCP Follow-up with bobbin cleaner Follow-up with hand surgeon Complete antibiotics course Report the next week of blood sugar findings at PCP follow-up Time Spent: Greater than 30 Minutes Stroke Is this a Stroke Patient?: No Acute Heart Failure - Is this a Heart Failure Patient?: No
[2019-12-30 17:07] VITALS: BP 142/75
== END 2019-12-30 17:10 | disposition home or self-care (01) | DRG 603 ==
LOC: ER 03:26 → EH 10:12 → 4S 11:25
PROVIDERS: ADMIT Internal Medicine; ATTEND Internal Medicine
PROC: 0HBFXZZ Excision of Right Hand Skin, External Approach (ICD-10-PCS; principal; 2019-12-27)
DX: L03.011 Cellulitis of right finger (principal); E87.1 Hypo-osmolality and hyponatremia; L97.419 Non-pressure chronic ulcer of right heel and midfoot with unspecified severity; T23.211A Burn of second degree of right thumb (nail), initial encounter; E11.621 Type 2 diabetes mellitus with foot ulcer; E11.65 Type 2 diabetes mellitus with hyperglycemia; I10 Essential (primary) hypertension; Y93.89 Activity, other specified; Y92.019 Unspecified place in single-family (private) house as the place of occurrence of the external cause; X15.2XXA Contact with hotplate, initial encounter; E78.00 Pure hypercholesterolemia, unspecified; E66.9 Obesity, unspecified; Z89.512 Acquired absence of left leg below knee; Z68.34 Body mass index [BMI] 34.0-34.9, adult; Z89.411 Acquired absence of right great toe; Z79.82 Long term (current) use of aspirin; Z79.4 Long term (current) use of insulin; Z79.899 Other long term (current) drug therapy; Z83.3 Family history of diabetes mellitus; Z82.49 Family history of ischemic heart disease and other diseases of the circulatory system
CPT/HCPCS: 36415; 80053; 80202; 82962; 83036; 83735; 83880; 84443; 85025; 87040; 87070; 87075; 87077; 87205; 96365; 96367; 99285; J1644; J1815; J2543; J3370; J3490; J7030; J7050; J7060

== ENCOUNTER 2020-05-07 20:14 | Inpatient (IN) | payer MEDICARE, OTHER ==
[2020-05-07] MEDS ORDERED: NORMAL SALINE 1000 ML 1,000 ML IV ONE (20:35)
[2020-05-07] MEDS ORDERED: INSULIN REG, HUMAN 100 UNIT/ML 3 ML VIAL (PYX) SUBCUT ONE (20:38)
--- NOTE | 2020-05-07 20:48 | ER Document Report ---
ED General - General Chief Complaint: Leg Injury Stated Complaint: LEG INJURY Time Seen by Provider: 05/07/20 20:21 TRAVEL OUTSIDE OF THE [place] IN LAST 30 DAYS: No - HPI Context: This is a 64-year-old female with a history of insulin-dependent diabetes, hypertension, history of left below the knee amputation secondary to group B strep infection presenting to the emergency department after falling at home. Patient states that she was using the prosthetic on the stump of her left lower extremity and the shoe on her right foot got snagged on the floor causing her to fall forward. Patient felt immediate onset of pain in her ankle and mid leg and 911 was called to transport the patient to the ED for further evaluation. On arrival, patient has the right lower extremity placed in a right stirrup splint with the lower extremity externally rotated and flexed at the ankle. Patient rates the pain as a 3 out of 5, localizes it to her right lower leg and characterizes it as sharp. Patient denies hitting her head or other traumatic injury when she fell. Patient denies loss of consciousness. Patient's last meal was at 1630 hrs. today. Patient denies history of fever, chills, chest pain, shortness of breath, nausea, vomiting, loss of sense of taste or loss of sense of smell, history of prior COVID-19 exposure, known exposure to Covid +19 persons or persons under investigation for COVID-19. Patient states movement of the extremity makes the pain worse and remaining still alleviates the pain at least somewhat. Associated symptoms: Other - See HPI Exacerbated by: Other - See HPI Relieved by: Other - See HPI - Related Data Allergies/Adverse Reactions: morphine Adverse Reaction (Verified 05/07/20 20:29) Past Medical History - General Information source: Patient, Emergency Med Personnel - Social History Smoking Status: Never Smoker Frequency of alcohol use: None Drug Abuse: None Family History: Reviewed & Not Pertinent Patient has suicidal ideation: No Patient has homicidal ideation: No - Past Medical History Cardiac Medical History: Reports: Hx Hypercholesterolemia, Hx Hypertension Endocrine Medical History: Reports: Hx Diabetes Mellitus Type 2 Renal/ Medical History: Denies: Hx Peritoneal Dialysis Psychiatric Medical History: Denies: Hx Depression Past Surgical History: Reports: Hx Orthopedic Surgery - Left BKA. Right Great toe amputation. Review of Systems - Review of Systems Constitutional: No symptoms reported EENT: No symptoms reported Cardiovascular: No symptoms reported Respiratory: No symptoms reported Gastrointestinal: No symptoms reported Genitourinary: No symptoms reported Female Genitourinary: No symptoms reported Musculoskeletal: Other - Leg pain Skin: No symptoms reported Hematologic/Lymphatic: No symptoms reported Neurological/Psychological: No symptoms reported Physical Exam - Vital signs Vitals: Temp Pulse Resp BP Pulse Ox 98.3 F 71 14 164/66 H 97 05/07/20 20:21 05/07/20 20:21 05/07/20 20:21 05/07/20 20:21 05/07/20 20:21 - Notes Notes: CONSTITUTIONAL [Vital signs reviewed, Patient appears comfortable, Alert and oriented X 3, Normal stature.] HEAD [Atraumatic, Normocephalic.] EYES [Eyes are normal to inspection, No discharge from eyes, Extraocular muscles intact, Sclera are normal, Conjunctiva are normal.] ENT [External ears normal to inspection, Nose examination normal, Mouth normal to inspection.] NECK [Normal ROM, No jugular venous distention, No meningeal signs, ] RESPIRATORY CHEST [Chest is nontender, Breath sounds normal, No respiratory distress.] CARDIOVASCULAR [RRR, No murmurs, Normal S1 S2, No rub, No gallop.] ABDOMEN [Abdomen is nontender, No pulsatile masses, No other masses, Bowel sounds normal, No distension, No peritoneal signs, No hernias.] BACK [There is no CVA Tenderness, There is no tenderness to palpation, Normal inspection.] UPPER EXTREMITY [Inspection normal, No cyanosis, No clubbing, No edema, LOWER EXTREMITY Lower extremity exam is significant for apparent torsion deformity with the patient's right lower extremity straightened but rotated at a right angle and the side of the lower leg with her ankle flexed. Right lower leg is tender to palpation. There is no evidence of ecchymosis or open fracture. Area is tender to palpation. Dorsalis pedis pulses 2+ in the right foot. Patient is status post right great toe amputation that appears to be well-healed. Cap refill in the right foot is less than 2 seconds. Sensation is intact. NEURO [No focal motor deficits, No focal sensory deficits, Speech normal.] SKIN [Skin is warm, Skin is dry, Skin is normal color.] PSYCHIATRIC [Normal affect. ] Course - Re-evaluation Re-evalutation: 05/08/20 01:37 Dr. Bunch was made aware of the read on the patient's left knee films: he feels that the changes appear to be old. This MD informed Dr. Morataya of my discussion with Dr. Han about the left knee film findings. - Vital Signs Vital signs: Temp Pulse Resp BP Pulse Ox 98.3 F 71 14 121/105 H 97 05/07/20 20:21 05/07/20 20:21 05/07/20 20:21 05/08/20 01:01 05/08/20 01:01 - Laboratory Result Diagrams: 05/07/20 20:25 05/07/20 20:25 Laboratory results interpreted by me: 05/07/20 05/07/20 05/07/20 20:25 20:25 20:25 RDW 14.7 H Potassium 5.2 H BUN 24 H Est GFR (MDRD) Non-Af 56 L Glucose 408 H* Hemoglobin A1c % 7.6 H AST 76 H ALT 59 H Urine Glucose (UA) Ur Leukocyte Esterase 05/07/20 22:05 RDW Potassium BUN Est GFR (MDRD) Non-Af Glucose Hemoglobin A1c % AST ALT Urine Glucose (UA) >=500 H Ur Leukocyte Esterase TRACE H - EKG Interpretation by Me Additional EKG results interpreted by me: 05/07/20 21:03 EKG obtained on 05/07/2020 at 2040 hrs. was interpreted on the same day. Findings: Normal sinus rhythm, rate 66, normal axis, AK intervals appear to be within normal limits, P waves proceed QRS complexes, QRS complexes appear narrow, QTC is 432, there are no obvious patterns of ST segment elevation, depression or reciprocal changes seen to suggest acute myocardial ischemia or infarction. When compared with prior EKG from 09/13/2018 morphology between the 2 EKGs appears grossly similar. Impression: Normal sinus rhythm with nonspecific ST segments. - Consults Ortho(Dr. Bunch) Time consulted: 21:50 - requested hospitalist admit because of co-morbidities and will consult Reason for consultation: 05/07/20 22:00 right tibial and fibular fracture Dr. Morataya, Hospitalist Time consulted: 21:56 - agreed to admit primarily Reason for consultation: 05/07/20 21:59 pt with leg fx, uncontrolled dm and htn Dr. Bunch Time consulted: 22:05 - agreed with plan to splint with stirrup and short post splint and npo p mn Reason for consultation: 05/07/20 22:13 right tib fib fx Procedures - Immobilization Right Lower Leg Time completed: 22:55 - splint right tib fib fx Pre-Proc Neuro Vasc Exam: Normal Immobilizer type: Sugar tong, Short Leg Posterior Performed by: PCT Post-Proc Neuro Vasc Exam: Normal Alignment checked and good: Yes Discharge - Discharge Clinical Impression: Insulin dependent diabetes mellitus, Uncontrolled hypertension Accidental fall Qualifiers: Encounter type: initial encounter Qualified Code(s): W19.XXXA - Unspecified fall, initial encounter Fracture of right tibia and fibula Qualifiers: Encounter type: initial encounter Fracture type: closed Qualified Code(s): S 82.201A - Unspecified fracture of shaft of right tibia, initial encounter for closed fracture Condition: Stable Disposition: ADMITTED INPATIENT Admitting Provider: Hood (Hospitalist) Unit Admitted: Telemetry
[2020-05-07 20:51] LABS: INTERNATIONAL RATION (INR) 0.89; PARTIAL THROMBOPLASTIN TIME 29.5 SEC (23.5-35.8); PROTHROMBIN TIME 12.3 SEC (11.4-15.4)
[2020-05-07 21:00] LABS: ABSOLUTE BASOPHILS # (AUTO) 0.1 10^3/uL (0.0-0.2); ABSOLUTE EOSINOPHILS # (AUTO) 0.3 10^3/uL (0.0-0.6); ABSOLUTE LYMPHOCYTES (AUTO) 1.5 10^3/uL (0.5-4.7); ABSOLUTE MONOCYTES (AUTO) 0.5 10^3/uL (0.1-1.4); ABSOLUTE NEUT (AUTO) 5.6 10^3/uL (1.7-8.2); BASOPHILS % (AUTO) 0.6 % (0-2); EOSINOPHILS % (AUTO) 4.2 % (0-6); HEMATOCRIT 39.8 % (36.0-47.0); HEMOGLOBIN 13.5 g/dL (12.0-15.5); LYMPHOCYTES % (AUTO) 19.3 % (13-45); MEAN CORPUSCULAR HEMOGLOBIN 30.4 pg (27.0-33.4); MEAN CORPUSCULAR VOLUME 90 fl (80-97); PLATELET COUNT 257 10^3/uL (150-450); RED BLOOD COUNT 4.44 10^6/uL (3.72-5.28); RED CELL DISTRIBUTION WIDTH 14.7 % (11.5-14.0); SEGMENTED NEUTROPHILS % (AUTO) 69.9 % (42-78); TOTAL CELLS COUNTED % (AUTO) 100 %
[2020-05-07 21:08] LABS: ALBUMIN 4.3 g/dL (3.5-5.0); ALKALINE PHOSPHATASE 39 U/L (38-126); ANION GAP 7 (5-19); ASPARTATE AMINO TRANSFERASE 76 U/L (14-36); BILIRUBIN,DIRECT 0.2 mg/dL (0.0-0.4); BILIRUBIN,TOTAL 0.4 mg/dL (0.2-1.3); BLOOD UREA NITROGEN 24 mg/dL (7-20); CALCIUM 9.8 mg/dL (8.4-10.2); CARBON DIOXIDE 27 mmol/L (22-30); CHLORIDE 104 mmol/L (98-107); POTASSIUM 5.2 mmol/L (3.6-5.0); TOTAL PROTEIN 6.8 g/dL (6.3-8.2)
[2020-05-07 21:17] LABS: GLUCOSE 408 mg/dL (75-110)
--- NOTE | 2020-05-07 21:45 | RADIOLOGY REPORT (SQ) ---
EXAM DESCRIPTION: KNEE LEFT 2 VIEWS CLINICAL HISTORY: 64 years Female, s/p fall COMPARISON: None. FINDINGS: Bone mineralization is diminished. There is been previous below knee amputation. A large knee effusion is identified and there is an impacted lateral tibial plateau fracture which involves the majority of the articular surface of the lateral plateau. There is a vertical fracture extending into the metaphysis. Medial tibial plateau is intact and the distal femur is intact. IMPRESSION: Osteopenia. Impacted lateral tibial plateau fracture which is mildly comminuted. At least 3 mm of impaction is present. Knee effusion. Previous below-knee amputation which is healed.
--- NOTE | 2020-05-07 21:47 | RADIOLOGY REPORT (SQ) ---
EXAM DESCRIPTION: ANKLE RIGHT COMPLETE, two views CLINICAL HISTORY: 64 years Female, s/p fall, right ankle pain COMPARISON: None. FINDINGS: Highly comminuted fracture of the distal tibia diaphysis is noted with a medial butterfly fragment. Fracture of the distal fibula is seen proximal to the ankle joint. There is a splint over the ankle which obscures the soft tissues. Bone mineralization is diminished. There is narrowing of the ankle joint with mild degenerative change along the fibula. There appears to been previous amputation of the first metatarsal and there may be amputations of the second through fourth metatarsals as well. These are incompletely imaged. There is traction osteophyte formation of the calcaneus at the insertion of the Achilles tendon. IMPRESSION: 1. Osteopenia. 2. Fracture of the distal fibula which may be segmental. 3. Comminuted fracture of the distal tibia diaphysis with a medial butterfly fragment. There is at least 7 mm medial displacement of the distal tibia with respect to the proximal tibia. 4. Probable changes of amputation in the foot. 5. No definitive ankle fracture.
--- NOTE | 2020-05-07 21:47 | RADIOLOGY REPORT (SQ) ---
EXAM DESCRIPTION: XR CHEST 1 VIEW COMPLETED DATE/TME: 05/07/2020 21:05 EXAM DESCRIPTION: CHEST SINGLE VIEW CLINICAL HISTORY: pre-op COMPARISON: None FINDINGS: Cardiac silhouette is within normal limits. There is elevation of the right hemidiaphragm. There is atherosclerosis. There is no focal parenchymal or pleural disease. There is no acute osseous process visualized. IMPRESSION: No evidence of acute cardiopulmonary disease. Elevated right hemidiaphragm. Prior exams are not available however prior report describes similar finding.
--- NOTE | 2020-05-07 21:50 | RADIOLOGY REPORT (SQ) ---
EXAM DESCRIPTION: TIBIA FIBULA RIGHT, two views CLINICAL HISTORY: 64 years Female, s/p fall, right leg pain COMPARISON: None. FINDINGS: Bone mineralization is diminished. There is a comminuted fracture of the distal tibia diaphysis in the lower third of the leg. There is a medial butterfly fragment. 8 mm of offset is seen at the fracture with medial displacement of the distal tibia with respect to the proximal tibia. Mild apex anterior angulation is noted. Soft tissue swelling is present. Vascular calcifications are seen. In addition there is a mildly comminuted fracture of the distal fibula proximal to the ankle joint with apex medial angulation The knee and proximal tibia and fibula are intact.. IMPRESSION: 1. Comminuted fracture of the distal tibia diaphysis with a medial butterfly fragment. There is medial displacement of the distal tibia with mild apex anterior angulation at the fracture. 2. Fracture of the distal fibula with apex medial angulation. This is proximal to the ankle joint. 3. Osteopenia.
[2020-05-07] MEDS ORDERED: FENTANYL CITRATE INJ/PF 100 MCG/2 ML AMPUL IV ONE (22:55)
[2020-05-07] MEDS ORDERED: FENTANYL CITRATE INJ/PF 100 MCG/2 ML AMPUL IV PRN (23:08)
[2020-05-07] MEDS ORDERED: ONDANSETRON HCL INJ/PF 4 MG/2 ML SDV IV PRN (23:10)
[2020-05-07] MEDS ORDERED: DEXTROSE 50%-WATER 25 GM/50 ML DISP.SYRIN IV PRN ×2 (23:15)
[2020-05-07] MEDS ORDERED: DEXTROSE 40% GEL 15 GM TUBE PO PRN ×2 (23:15)
[2020-05-07] MEDS ORDERED: GLUCAGON,HUMAN RECOMB 1 MG INJ IM PRN (23:15)
[2020-05-07] MEDS ORDERED: HYDRALAZINE HCL INJ/PF 20 MG/1 ML SDV IV PRN (23:18)
[2020-05-07] MEDS ORDERED: LOSARTAN POTASSIUM 50 MG TABLET PO ONE (23:30)
[2020-05-07 23:37] LABS: APPEARANCE,URINE CLEAR; BILIRUBIN,URINE NEGATIVE (NEGATIVE); COLOR,URINE YELLOW; GLUCOSE, URINE >=500 mg/dL (NEGATIVE); KETONES,URINE NEGATIVE (NEGATIVE); LEUKOCYTE ESTERASE,URINE TRACE (NEGATIVE); NITRITE,URINE NEGATIVE (NEGATIVE); PROTEIN,URINE NEGATIVE (NEGATIVE); URINE SPECIFIC GRAVITY 1.023; UROBILINOGEN,URINE NEGATIVE mg/dL (<2.0)
--- NOTE | 2020-05-07 23:45 | PDOC H&P ---
History of Present Illness Admission Date/PCP: 05/07/20 23:26 JING MORENO DPM History of Present Illness: MARCELA MARSHALL is a 64 year old female with multiple medical comorbidities including hypertension, insulin-dependent type 2 diabetes mellitus, and history of left below the knee amputation, who presents with pain and deformity in her right lower extremity after a mechanical fall at home. X-rays reveal a distal tibia-fibula fracture. Her hemoglobin A1c is only 7.6, but her blood sugar was over 400. She was also hypertensive, possibly from pain. Due to the fact that she had a couple of uncontrolled chronic medical problems, I agreed to admit this patient to the hospitalist service with orthopedics consulting. Past Medical History Cardiac Medical History: Reports: Hyperlipidema, Hypertension Endocrine Medical History: Reports: Diabetes Mellitus Type 2 Psychiatric Medical History: Denies: Depression Past Surgical History Past Surgical History: Reports: Orthopedic Surgery - Left BKA. Right Great toe amputation. Social History Smoking Status: Never Smoker Frequency of Alcohol Use: None Hx Recreational Drug Use: No Drugs: None Hx Prescription Drug Abuse: No Family History Family History: Reviewed & Not Pertinent, DM, Hyperlipidemia, Hypertension, Thyroid Disfunction Parental Family History Reviewed: Yes Children Family History Reviewed: Yes Sibling(s) Family History Reviewed.: Yes Medication/Allergy Home Medications: Aspirin [Aspirin 81 mg Chewable Tablet] 81 mg PO DAILY 12/27/19 Bisoprolol/Hydrochlorothiazide [Ziac 2.5-6.25 mg Tablet] 12/27/19 Cetirizine HCl [Zyrtec 10 mg Tablet] 10 mg PO 12/27/19 Fenofibrate Nanocrystallized [Tricor 145 mg Tablet] 145 mg PO 12/27/19 Losartan Potassium [Cozaar] 12/27/19 Rosuvastatin Calcium [Crestor] 20 mg PO 12/27/19 Amoxicillin/Potassium Clav [Augmentin 875-125 Tablet] 1 tab PO Q12 4 Days #8 tablet 12/30/19 Insulin Aspart [Novolog Insulin (Aspart) 100 unit/mL] See Protocol SQ ASDIR 30 Days 12/30/19 Insulin Glargine,Hum.rec.anlog [Lantus Insulin 100 Unit/1 ml 10 ml] 50 unit [place] BCUT Q12 #4 vial 12/30/19 Metformin HCl [Glucophage 500 mg Tablet] 1,000 mg PO BIDACBS #120 tablet 12/30/19 Multivitamin [Tab-A-Maggie (Multiple Vitamin) Tablet] 1 tab PO DAILY #0 tablet 12/30/19 Pantoprazole Sodium [Protonix [address] Tablet] 40 mg PO Q6AM #30 tablet.dr 12/30/19 Allergies/Adverse Reactions: morphine Adverse Reaction (Verified 05/07/20 20:29) Review of Systems All systems: reviewed and no additional remarkable complaints except as stated - All systems were reviewed and were negative except as noted in the HPI Physical Exam Vital Signs: Temp Pulse Resp BP Pulse Ox 98.3 F 71 14 186/87 H 98 05/07/20 20:21 05/07/20 20:21 05/07/20 20:21 05/07/20 22:03 05/07/20 22:03 Intake & Output 05/06/20 05/07/20 05/08/20 06:59 06:59 06:59 Weight 98.3 kg General appearance: PRESENT: no acute distress, cooperative, disheveled, morbidly obese Head exam: PRESENT: atraumatic, normocephalic Eye exam: PRESENT: EOMI, PERRLA. ABSENT: conjunctival injection, nystagmus, scleral icterus Ear exam: PRESENT: normal external ear exam Mouth exam: PRESENT: moist, neck supple Throat exam: ABSENT: post pharyngeal erythema Neck exam: PRESENT: full ROM. ABSENT: carotid bruit, JVD, lymphadenopathy, meningismus, tenderness, thyromegaly Respiratory exam: PRESENT: clear to auscultation sushil, symmetrical, unlabored. ABSENT: accessory muscle use, chest wall tenderness, crackles, prolonged expiratory phas, rhonchi, tachypnea, wheezes Cardiovascular exam: PRESENT: RRR, +S1, +S2 Pulses: PRESENT: normal carotid pulses Vascular exam: PRESENT: normal capillary refill GI/Abdominal exam: PRESENT: normal bowel sounds, soft, other - Pendulous abdominal pannus. ABSENT: distended, guarding, rebound, tenderness Extremities exam: PRESENT: other - Great toe is missing from the right foot, surgically absent. There is a shallow healing ulcer on the plantar surface of the first metatarsal head. She has a hammertoe with the second digit of the right foot crossing over the third digit. Old left BKA with unremarkable stump.. ABSENT: pedal edema Musculoskeletal exam: PRESENT: deformity - Obvious deformity of the lower extremity proximal to the ankle Neurological exam: PRESENT: alert, awake, oriented to person, oriented to place, oriented to time, oriented to situation, CN II-XII grossly intact. ABSENT: motor sensory deficit Psychiatric exam: PRESENT: appropriate affect, normal mood Skin exam: PRESENT: dry, warm Results Laboratory Results: 05/07/20 20:25 05/07/20 20:25 05/07/20 05/07/20 05/07/20 20:25 20:25 20:25 WBC 8.0 RBC 4.44 Hgb 13.5 Hct 39.8 MCV 90 MCH 30.4 MCHC 34.0 RDW 14.7 H Plt Count 257 Seg Neutrophils % 69.9 Sodium 138.2 Potassium 5.2 H Chloride 104 Carbon Dioxide 27 Anion Gap 7 BUN 24 H Creatinine 0.99 Est GFR ( Amer) > 60 Glucose 408 H* Calcium 9.8 Magnesium 1.6 Total Bilirubin 0.4 AST 76 H Alkaline Phosphatase 39 Total Protein 6.8 Albumin 4.3 Blood Type AB POSITIVE Antibody Screen NEGATIVE Impressions: Knee X-Ray 05/07/20 20:31 IMPRESSION: Osteopenia. Impacted lateral tibial plateau fracture which is mildly comminuted. At least 3 mm of impaction is present. Knee effusion. Previous below-knee amputation which is healed. Ankle X-Ray 05/07/20 20:32 IMPRESSION: 1. Osteopenia. 2. Fracture of the distal fibula which may be segmental. 3. Comminuted fracture of the distal tibia diaphysis with a medial butterfly fragment. There is at least 7 mm medial displacement of the distal tibia with respect to the proximal tibia. 4. Probable changes of amputation in the foot. 5. No definitive ankle fracture. Tibia/Fibula X-Ray 05/07/20 20:32 IMPRESSION: 1. Comminuted fracture of the distal tibia diaphysis with a medial butterfly fragment. There is medial displacement of the distal tibia with mild apex anterior angulation at the fracture. 2. Fracture of the distal fibula with apex medial angulation. This is proximal to the ankle joint. 3. Osteopenia. Chest X-Ray 05/07/20 20:34 IMPRESSION: No evidence of acute cardiopulmonary disease. Elevated right hemidiaphragm. Prior exams are not available however prior report describes similar finding. Assessment and Plan - Diagnosis (1) Fracture of right tibia and fibula Qualifiers: Encounter type: initial encounter Fracture type: closed Qualified Code(s): S82.201A - Unspecified fracture of shaft of right tibia, initial encounter for closed fracture; S82.401A - Unspecified fracture of shaft of right fibula, initial encounter for closed fracture Is this a current diagnosis for this admission?: Yes (2) Accidental fall Qualifiers: Encounter type: initial encounter Qualified Code(s): W19.XXXA - Unspecified fall, initial encounter Is this a current diagnosis for this admission?: Yes (3) Insulin dependent diabetes mellitus Is this a current diagnosis for this admission?: Yes (4) Uncontrolled hypertension Is this a current diagnosis for this admission?: Yes (5) History of left below knee amputation Is this a current diagnosis for this admission?: Yes (6) Obesity (BMI 30.0-34.9) Is this a current diagnosis for this admission?: Yes (7) Pressure ulcer Qualifiers: Pressure injury location: foot, unspecified location Pressure injury stage: stage 2 Laterality: right Qualified Code(s): L89.892 - Pressure ulcer of other site, stage 2 Is this a current diagnosis for this admission?: Yes - Plan Summary Summary: Fracture management per orthopedics. We will try to get her typical medications restored. Went ahead and ordered her evening dose of Lantus, but her home medication list that we have on file says that she takes this Lantus twice a day. She is also on a sliding scale, which I have added. I continued her HCTZ from home and have increased her Cozaar. I went ahead and gave her an additional dose of Cozaar this evening. I ordered some as needed IV hydralazine for her blood pressure. We will repeat her labs in the morning in anticipation of surgery. I advised her that there is a possibility she may have to [facility] for a short time whenever she is ready to leave the hospital. - Time Time Spent with patient: 35 or more minutes Anticipated Discharge Disposition: Halfway Facility Anticipated Discharge Timeframe: Unknown - Inpatient Certification Based on my medical assessment, after consideration of the patient's comorbidities, presenting symptoms, or acuity I expect that the services needed warrant INPATIENT care.: Yes I certify that my determination is in accordance with my understanding of Medicare's requirements for reasonable and necessary INPATIENT services [42 CFR 412.3e].: Yes Medical Necessity: Significant Comorbidiites Make Outpatient Treatment Too Risky, Need For Continuous Telemetry Monitoring, Need for Pain Control, Need for Surgery, Risk of Complication if Not Cared For in Hospital
[2020-05-07] MEDS: INSULIN GLARGINE,HUM.REC.ANLOG 1,000 UNIT/10 ML VIAL SUBCUT SCH (23:54)
[2020-05-08 05:21] LABS: HEMATOCRIT 35.5 % (36.0-47.0); MEAN CORPUSCULAR HEMOGLOBIN 30.1 pg (27.0-33.4); MEAN CORPUSCULAR HGB CONC 33.8 g/dL (32.0-36.0); MEAN CORPUSCULAR VOLUME 89 fl (80-97); PLATELET COUNT 264 10^3/uL (150-450); RED BLOOD COUNT 3.97 10^6/uL (3.72-5.28); RED CELL DISTRIBUTION WIDTH 14.7 % (11.5-14.0); WHITE BLOOD COUNT 11.7 10^3/uL (4.0-10.5)
[2020-05-08 05:23] LABS: INTERNATIONAL RATION (INR) 0.97; PROTHROMBIN TIME 13.1 SEC (11.4-15.4)
[2020-05-08 05:24] LABS: PARTIAL THROMBOPLASTIN TIME 28.7 SEC (23.5-35.8)
[2020-05-08 05:42] LABS: ANION GAP 7 (5-19); BLOOD UREA NITROGEN 25 mg/dL (7-20); CALCIUM 9.3 mg/dL (8.4-10.2); CARBON DIOXIDE 26 mmol/L (22-30); CHLORIDE 106 mmol/L (98-107); GLUCOSE 261 mg/dL (75-110); POTASSIUM 4.4 mmol/L (3.6-5.0)
--- NOTE | 2020-05-08 08:32 | PDOC CONSULTATION ---
Consultation Consult Date: 05/08/20 Attending physician:: YANNI CORTEZ Provider Consulted: CHRISTIANO RUIZ Consult reason:: 1. Displaced fracture right tibial shaft. 2. Displaced fracture right lateral malleolus. 3. Left tibial plateau fracture History of Present Illness Admission Date/PCP: 05/07/20 23:26 JING MORENO DPM Patient complains of: 1. Right leg pain following a fall. 2. Left knee pain History of Present Illness: MARCELA MARSHALL is a 64 year old female with poorly controlled insulin requiring diabetes, peripheral neuropathy, and hypertension. She has previously undergone a below-knee amputation on the left reportedly due to a strep B infection. The patient reports that she was walking with her prosthesis last evening when she caught her right foot and fell. She immediately felt a discomfort and was unable to ambulate. She presented to the emergency department at [facility] where radiographs demonstrated a displaced, spiral fracture of the right tibial shaft with an associated displaced lateral malleolus fracture. Radiographs also demonstrate a fracture of the left tibial plateau. The patient does not remember a prior injury to her left knee. Past Medical History Cardiac Medical History: Reports: Hyperlipidema, Hypertension Endocrine Medical History: Reports: Diabetes Mellitus Type 2 Musculoskeltal Medical History: Reports: Other - Diabetic peripheral neuropathy Skin Medical History: Reports: Other - Chronic ulcerations right forefoot Psychiatric Medical History: Denies: Depression Past Surgical History Past Surgical History: Reports: Orthopedic Surgery - Left BKA. Right Great toe amputation. Social History Smoking Status: Never Smoker Frequency of Alcohol Use: None Hx Recreational Drug Use: No Drugs: None Hx Prescription Drug Abuse: No Family History Family History: Reviewed & Not Pertinent Parental Family History Reviewed: Yes Children Family History Reviewed: NA Sibling(s) Family History Reviewed.: NA Medication/Allergy Home Medications: Aspirin [Aspirin 81 mg Chewable Tablet] 81 mg PO DAILY 12/27/19 Bisoprolol/Hydrochlorothiazide [Ziac 2.5-6.25 mg Tablet] 12/27/19 Cetirizine HCl [Zyrtec 10 mg Tablet] 10 mg PO 12/27/19 Fenofibrate Nanocrystallized [Tricor 145 mg Tablet] 145 mg PO 12/27/19 Losartan Potassium [Cozaar] 12/27/19 Rosuvastatin Calcium [Crestor] 20 mg PO 12/27/19 Amoxicillin/Potassium Clav [Augmentin 875-125 Tablet] 1 tab PO Q12 4 Days #8 tablet 12/30/19 Insulin Aspart [Novolog Insulin (Aspart) 100 unit/mL] See Protocol SQ ASDIR 30 Days 12/30/19 Insulin Glargine,Hum.rec.anlog [Lantus Insulin 100 Unit/1 ml 10 ml] 50 unit SUBCUT Q12 #4 vial 12/30/19 Metformin HCl [Glucophage 500 mg Tablet] 1,000 mg PO BIDACBS #120 tablet 12/30/19 Multivitamin [Tab-A-Maggie (Multiple Vitamin) Tablet] 1 tab PO DAILY #0 tablet 12/30/19 Pantoprazole Sodium [Protonix [address] Tablet] 40 mg PO Q6AM #30 tablet.dr 12/30/19 Allergies/Adverse Reactions: morphine Adverse Reaction (Verified 05/07/20 20:29) Review of Systems All systems: reviewed and no additional remarkable complaints except as stated - As per HPI Physical Exam Vital Signs: Temp Pulse Resp BP Pulse Ox 97.6 F 74 16 156/57 H 96 05/08/20 02:40 05/08/20 04:39 05/08/20 02:40 05/08/20 02:40 05/08/20 02:01 Intake & Output 05/07/20 05/08/20 05/09/20 06:59 06:59 06:59 Intake Total 0 Output Total 0 Balance 0 Weight 98.5 kg General appearance: PRESENT: no acute distress, well-developed, well-nourished Head exam: PRESENT: atraumatic, normocephalic Mouth exam: PRESENT: moist, tongue midline Neck exam: ABSENT: carotid bruit, JVD, lymphadenopathy, thyromegaly Cardiovascular exam: PRESENT: RRR. ABSENT: diastolic murmur, rubs, systolic murmur GI/Abdominal exam: PRESENT: normal bowel sounds, soft. ABSENT: distended, guarding, mass, organolmegaly, rebound, tenderness Rectal exam: PRESENT: deferred Musculoskeletal exam: PRESENT: other - The right tib-fib is splinted. There are contractures of the toes of the forefoot and the patient is not able to actively move her toes. Sensation is decreased in the foot. 1+ DP. PT is not palpable. Neurological exam: PRESENT: alert, awake, oriented to person, oriented to place, oriented to time, oriented to situation, CN II-XII grossly intact. ABSENT: motor sensory deficit Psychiatric exam: PRESENT: appropriate affect, normal mood. ABSENT: homicidal ideation, suicidal ideation Results Laboratory Results: 05/08/20 04:34 05/08/20 04:34 05/07/20 05/07/20 05/07/20 20:25 20:25 20:25 WBC 8.0 RBC 4.44 Hgb 13.5 Hct 39.8 MCV 90 MCH 30.4 MCHC 34.0 RDW 14.7 H Plt Count 257 Seg Neutrophils % 69.9 Sodium 138.2 Potassium 5.2 H Chloride 104 Carbon Dioxide 27 Anion Gap 7 BUN 24 H Creatinine 0.99 Est GFR ( Amer) > 60 Glucose 408 H* Calcium 9.8 Magnesium 1.6 Total Bilirubin 0.4 AST 76 H Alkaline Phosphatase 39 Total Protein 6.8 Albumin 4.3 Urine Color Urine Appearance Urine pH Ur Specific [place] Urine Protein Urine Glucose (UA) Urine Ketones Urine Blood Urine Nitrite Ur Leukocyte Esterase Urine WBC (Auto) Urine RBC (Auto) Blood Type AB POSITIVE Antibody Screen NEGATIVE 05/07/20 05/08/20 05/08/20 22:05 04:34 04:34 WBC 11.7 H RBC 3.97 Hgb 12.0 Hct 35.5 L MCV 89 MCH 30.1 MCHC 33.8 RDW 14.7 H Plt Count 264 Seg Neutrophils % Sodium 139.2 Potassium 4.4 Chloride 106 Carbon Dioxide 26 Anion Gap 7 BUN 25 H Creatinine 0.81 Est GFR ( Amer) > 60 Glucose 261 H Calcium 9.3 Magnesium Total Bilirubin AST Alkaline Phosphatase Total Protein Albumin Urine Color YELLOW Urine Appearance CLEAR Urine pH 7.0 Ur Specific [place] 1.023 Urine Protein NEGATIVE Urine Glucose (UA) >=500 H Urine Ketones NEGATIVE Urine Blood NEGATIVE Urine Nitrite NEGATIVE Ur Leukocyte Esterase TRACE H Urine WBC (Auto) 5 Urine RBC (Auto) 3 Blood Type Antibody Screen Impressions: Knee X-Ray 05/07/20 20:31 IMPRESSION: Osteopenia. Impacted lateral tibial plateau fracture which is mildly comminuted. At least 3 mm of impaction is present. Knee effusion. Previous below-knee amputation which is healed. Ankle X-Ray 05/07/20 20:32 IMPRESSION: 1. Osteopenia. 2. Fracture of the distal fibula which may be segmental. 3. Comminuted fracture of the distal tibia diaphysis with a medial butterfly fragment. There is at least 7 mm medial displacement of the distal tibia with respect to the proximal tibia. 4. Probable changes of amputation in the foot. 5. No definitive ankle fracture. Tibia/Fibula X-Ray 05/07/20 20:32 IMPRESSION: 1. Comminuted fracture of the distal tibia diaphysis with a medial butterfly fragment. There is medial displacement of the distal tibia with mild apex anterior angulation at the fracture. 2. Fracture of the distal fibula with apex medial angulation. This is proximal to the ankle joint. 3. Osteopenia. Chest X-Ray 05/07/20 20:34 IMPRESSION: No evidence of acute cardiopulmonary disease. Elevated right hemidiaphragm. Prior exams are not available however prior report describes similar finding. Assessment & Plan - Diagnosis (2) Peripheral neuropathy Qualifiers: Peripheral neuropathy type: polyneuropathy associated with underlying disease Qualified Code(s): G63 - Polyneuropathy in diseases classified elsewhere Is this a current diagnosis for this admission?: Yes (3) Accidental fall Qualifiers: Encounter type: initial encounter Qualified Code(s): W19.XXXA - Unspecified fall, initial encounter Is this a current diagnosis for this admission?: Yes (4) Fracture of right tibia and fibula Qualifiers: Encounter type: initial encounter Fracture type: closed Qualified Code(s): S82.201A - Unspecified fracture of shaft of right tibia, initial encounter for closed fracture; S82.401A - Unspecified fracture of shaft of right fibula, initial encounter for closed fracture Is this a current diagnosis for this admission?: Yes (5) Insulin dependent diabetes mellitus Is this a current diagnosis for this admission?: Yes - Time Time Spent: 30 to 50 Minutes Anticipated discharge: SNF Anticipated DC Timeframe: within 48 hours - Plan Summary Plan Summary: The patient is a pleasant 64-year-old woman with poorly controlled insulin requiring diabetes and associated peripheral neuropathy. She sustained a fall resulting in a displaced fracture of the shaft of the right tibia with an associated lateral malleolus fracture. She also sustained a fracture of the left lateral tibial plateau. 1. Left lateral plateau fracture: Radiographs of the left knee demonstrate an a cute fracture of the left lateral tibial plateau. These radiographs also demonstrate what appears to have been a prior tibial plateau fracture in this area. We will obtain a CAT scan of the left knee to determine whether she would benefit from operative intervention. 2. Right displaced tibial shaft fracture with displaced lateral malleolus fracture: I have recommended intramedullary nail fixation of the right tibial shaft and open reduction internal fixation of the right lateral malleolus. Risks, benefits, and alternatives were discussed with the patient. Risks include the risk of with anesthesia, the risk of infection, the risk of injury to nerves and vessels, the risk of nonunion and malunion, and the possible need for additional surgery. An opportunity for questions was pro vided. All questions were answered to the patient's satisfaction. The patient expressed understanding and wishes to proceed.
[2020-05-08] MEDS: INSULIN LISPRO 100 UNIT/ML 3 ML VIAL SUBCUT SCH ×4 (08:34→21:53)
--- NOTE | 2020-05-08 08:41 | EKG REPORT ---
SEVERITY:- ABNORMAL ECG - SINUS RHYTHM PROBABLE INFERIOR INFARCT, OLD : Confirmed by: Mike Coates MD 08-May-2020 08:40:45
[2020-05-08] MEDS ORDERED: LOSARTAN POTASSIUM 50 MG TABLET PO SCH (10:00)
[2020-05-08] MEDS ORDERED: EPHEDRINE SULFATE INJ 50 MG/1 ML AMPULE ONE (10:24)
[2020-05-08] MEDS ORDERED: MIDAZOLAM 2 MG/2 ML INJ ONE (10:24)
[2020-05-08] MEDS ORDERED: HYDROMORPHONE HCL INJ/PF 2 MG/ML AMPULE ONE (10:24)
[2020-05-08] MEDS ORDERED: FENTANYL CITRATE INJ/PF 100 MCG/2 ML AMPUL ONE (10:24)
[2020-05-08] MEDS ORDERED: ONDANSETRON HCL INJ/PF 4 MG/2 ML SDV ONE (10:25)
[2020-05-08] MEDS ORDERED: PROPOFOL INJ 200 MG/20 ML VIAL IV ONE (10:25)
[2020-05-08] MEDS ORDERED: CEFAZOLIN INJ 1 GM VIAL ONE (10:50)
--- NOTE | 2020-05-08 12:04 | PDOC PROGRESS REPORT ---
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 Patient was seen on morning rounds. She is found resting in bed, comfortably, on room air. She reports that her pain is well controlled at present. She states that she spoke with the orthopedic surgeon this morning and that she is planned to go to the OR for surgical repair this afternoon. She states that she understands that she will likely require SNF placement for short-term rehab following her procedure. Otherwise, she denies all complaints. She specifically denies fever, chills, chest pain, palpitations, dyspnea, abdominal pain, nausea, vomiting. She has no questions or concerns at this time. No concerns per nursing. Reason For Visit: DISTAL RIGHT TIBIA FRACTURE,HYPERTENSIVE URGENCY Physical Exam Vital Signs: Temp Pulse Resp BP Pulse Ox 97.6 F 74 16 156/57 H 96 05/08/20 02:40 05/08/20 04:39 05/08/20 02:40 05/08/20 02:40 05/08/20 02:01 Intake & Output 05/07/20 05/08/20 05/09/20 06:59 06:59 06:59 Intake Total 0 Output Total 0 Balance 0 Weight 98.5 kg General appearance: PRESENT: no acute distress, cooperative, obese, well- developed, well-nourished Head exam: PRESENT: atraumatic, normocephalic Eye exam: PRESENT: conjunctiva pink, EOMI, PERRLA. ABSENT: scleral icterus Mouth exam: PRESENT: moist, tongue midline Respiratory exam: PRESENT: clear to auscultation sushil, symmetrical, unlabored. ABSENT: rales, rhonchi, wheezes Cardiovascular exam: PRESENT: RRR, +S1, +S2. ABSENT: diastolic murmur, rubs, systolic murmur Pulses: PRESENT: normal dorsalis pedis pul Vascular exam: PRESENT: normal capillary refill Extremities exam: PRESENT: tenderness - RLE, other - remote left bka and right great toe amputation.. ABSENT: calf tenderness, clubbing, full ROM - limited RLE r/t acute fracture, pedal edema Neurological exam: PRESENT: alert, awake, oriented to person, oriented to place, oriented to time, oriented to situation, CN II-XII grossly intact. ABSENT: motor sensory deficit Psychiatric exam: PRESENT: appropriate affect, normal mood. ABSENT: homicidal ideation, suicidal ideation Skin exam: PRESENT: dry, warm, other - Shallow healing ulcer to the right plantar surface of the first metatarsal head. ABSENT: cyanosis, intact, rash Results Laboratory Results: 05/08/20 04:34 05/08/20 04:34 05/07/20 05/07/20 05/07/20 20:25 20:25 20:25 WBC 8.0 RBC 4.44 Hgb 13.5 Hct 39.8 MCV 90 MCH 30.4 MCHC 34.0 RDW 14.7 H Plt Count 257 Seg Neutrophils % 69.9 Sodium 138.2 Potassium 5.2 H Chloride 104 Carbon Dioxide 27 Anion Gap 7 BUN 24 H Creatinine 0.99 Est GFR ( Amer) > 60 Glucose 408 H* Calcium 9.8 Magnesium 1.6 Total Bilirubin 0.4 AST 76 H Alkaline Phosphatase 39 Total Protein 6.8 Albumin 4.3 Urine Color Urine Appearance Urine pH Ur Specific [place] Urine Protein Urine Glucose (UA) Urine Ketones Urine Blood Urine Nitrite Ur Leukocyte Esterase Urine WBC (Auto) Urine RBC (Auto) Blood Type AB POSITIVE Antibody Screen NEGATIVE 05/07/20 05/08/20 05/08/20 22:05 04:34 04:34 WBC 11.7 H RBC 3.97 Hgb 12.0 Hct 35.5 L MCV 89 MCH 30.1 MCHC 33.8 RDW 14.7 H Plt Count 264 Seg Neutrophils % Sodium 139.2 Potassium 4.4 Chloride 106 Carbon Dioxide 26 Anion Gap 7 BUN 25 H Creatinine 0.81 Est GFR ( Amer) > 60 Glucose 261 H Calcium 9.3 Magnesium Total Bilirubin AST Alkaline Phosphatase Total Protein Albumin Urine Color YELLOW Urine Appearance CLEAR Urine pH 7.0 Ur Specific [place] 1.023 Urine Protein NEGATIVE Urine Glucose (UA) >=500 H Urine Ketones NEGATIVE Urine Blood NEGATIVE Urine Nitrite NEGATIVE Ur Leukocyte Esterase TRACE H Urine WBC (Auto) 5 Urine RBC (Auto) 3 Blood Type Antibody Screen Impressions: Knee X-Ray 05/07/20 20:31 IMPRESSION: Osteopenia. Impacted lateral tibial plateau fracture which is mildly comminuted. At least 3 mm of impaction is present. Knee effusion. Previous below-knee amputation which is healed. Ankle X-Ray 05/07/20 20:32 IMPRESSION: 1. Osteopenia. 2. Fracture of the distal fibula which may be segmental. 3. Comminuted fracture of the distal tibia diaphysis with a medial butterfly fragment. There is at least 7 mm medial displacement of the distal tibia with respect to the proximal tibia. 4. Probable changes of amputation in the foot. 5. No definitive ankle fracture. Tibia/Fibula X-Ray 05/07/20 20:32 IMPRESSION: 1. Comminuted fracture of the distal tibia diaphysis with a medial butterfly fragment. There is medial displacement of the distal tibia with mild apex anterior angulation at the fracture. 2. Fracture of the distal fibula with apex medial angulation. This is proximal to the ankle joint. 3. Osteopenia. Chest X-Ray 05/07/20 20:34 IMPRESSION: No evidence of acute cardiopulmonary disease. Elevated right hemidiaphragm. Prior exams are not available however prior report describes similar finding. Assessment and Plan - Diagnosis (1) Fracture of right tibia and fibula Qualifiers: Encounter type: initial encounter Fracture type: closed Qualified Code(s): S82.201A - Unspecified fracture of shaft of right tibia, initial enco unter for closed fracture; S82.401A - Unspecified fracture of shaft of right fibula, initial encounter for closed fracture Is this a current diagnosis for this admission?: Yes Plan: Secondary to mechanical fall. Orthopedic surgery is consulted. Primary management per Dr. Bunch. Post-op DVT prophylaxis per Ortho. Analgesics as needed. Fall precautions. (2) Accidental fall Qualifiers: Encounter type: initial encounter Qualified Code(s): W19.XXXA - Unspecified fall, initial encounter Is this a current diagnosis for this admission?: Yes Plan: PT/OT post-operatively. Discharge planning consulted. Fall precautions. (3) Insulin dependent diabetes mellitus Is this a current diagnosis for this admission?: Yes Plan: A1c 7.6% Holding oral medications while admitted. Currently n.p.o. awaiting orthopedic repair. Lantus 50 units nightly; awaiting medication reconciliation for further dose adjustments. Accu-Cheks before meals and at bedtime with Humalog for sliding scale coverage. Hypoglycemia protocol in place. (4) Uncontrolled hypertension Is this a current diagnosis for this admission?: Yes Plan: Losartan 50 mg daily, hydrochlorothiazide 25 mg daily. Hydralazine as needed blood pressure control. Provide for adequate pain control. Awaiting medication reconciliation to make further medication adjustments. (5) History of left below knee amputation Is this a current diagnosis for this admission?: Yes Plan: Fall precautions. PT/OT consultation. Discharge planning for SNF for short-term rehab at discharge. (6) Pressure ulcer Qualifiers: Pressure injury location: foot, unspecified location Pressure injury stage: stage 2 Laterality: right Qualified Code(s): L89.892 - Pressure ulcer of other site, stage 2 Is this a current diagnosis for this admission?: Yes Plan: No signs of infectious process. Open to air. Monitor for worsening. (7) Obesity (BMI 30.0-34.9) Is this a current diagnosis for this admission?: Yes Plan: Dietary discretion advised. Currently n.p.o.; will advance to a consistent carb/cardiac diet postoperatively. - Time Time Spent with patient: 35 or more minutes Medications reviewed and adjusted accordingly: Yes Anticipated Discharge Disposition: Care Home Facility Anticipated Discharge Timeframe: within 72 hours - pending Ortho clearance
[2020-05-08] MEDS ORDERED: PROMETHAZINE HCL INJ 25 MG/1 ML VIAL IV PRN (13:44)
[2020-05-08] MEDS ORDERED: ONDANSETRON HCL INJ/PF 4 MG/2 ML SDV IV PRN (13:44)
[2020-05-08] MEDS ORDERED: FENTANYL CITRATE INJ/PF 100 MCG/2 ML AMPUL IV PRN ×3 (13:44)
[2020-05-08] MEDS ORDERED: DIPHENHYDRAMINE HCL 50 MG/ML VIAL IV PRN (13:44)
[2020-05-08] MEDS ORDERED: MEPERIDINE HCL/PF INJ 25 MG/1 ML DISP.SYRIN IV PRN (13:44)
[2020-05-08] MEDS ORDERED: OXYCODONE-ACETAMINOPHEN 5-325 MG TABLET PO PRN ×2 (13:44)
[2020-05-08] MEDS ORDERED: HYDROMORPHONE HCL INJ/PF 2 MG/ML AMPULE IV PRN (13:45)
--- NOTE | 2020-05-08 14:36 | Operative Report ---
Operative Report DATE OF SURGERY: 05/08/20 PREOPERATIVE DIAGNOSIS: 1. Displaced fracture right tibial shaft. 2. Displac ed fracture right lateral malleolus POSTOPERATIVE DIAGNOSIS: 1. Displaced fracture right tibial shaft. 2. Displaced fracture right lateral malleolus OPERATION: 1. Intramedullary nail right displaced tibial fracture. 2. Open reduction internal fixation right lateral malleolus fracture, separate incision. SURGEON: CHRISTIANO RUIZ ANESTHESIA: GA COMPLICATIONS: None ESTIMATED BLOOD LOSS: 50 cc INTRAOPERATIVE FINDINGS: Same PROCEDURE: Indications for procedure: The patient is a pleasant 64-year-old woman with poorly controlled diabetes mellitus and peripheral neuropathy. She has previou sly undergone a below-knee amputation of her left leg. Stained a fall last evening resulting in a displaced fracture of the right tibial shaft with an associated displaced lateral malleolus fracture. Description of procedure: Following the induction of a general anesthetic and administration of 2 g of Ancef, the patient was positioned supine on the operating room table. All bony prominences were padded. A tourniquet was placed proximally on the right thigh but not inflated. The right lower extremity was sterilely prepped with ChloraPrep and draped in standard fashion. We first turned our attention to intramedullary nail fixation of the tibial shaft. A suprapatellar approach was used. A 3 cm incision was made just proximal to the patella. A sharp incision was performed through skin with blunt dissection through the subcutaneous tissue down to the quadriceps tendon. Full- thickness incision of the quadriceps tendon was then performed. Guide from the [place] suprapatellar nail set was placed and a wire placed into the correct starting position of the proximal tibia. Its position was checked on image intensification. This guidewire was then overreamed. A ball-tipped guidewire was exchanged and placed centrally within the distal tibia. The position of the guidewire was checked under image intensification and found to be in the correct position. Sequential reaming was performed from a size 9 to a size 12-1/2. An 11 mm nail was placed. The nail was locked proximally in static mode. Distally a blocking screw was placed from a to P to maintain the central position of the nail in the distal tibia. 2 locking screws were placed distally using a perfect circles technique. Image intensification demonstrated adequate alignment of the fracture with correct placement of implants. All wounds were copiously irrigated. The quadriceps was repaired side to side with 0 Vicryl. Subcutaneous tissue was closed with 2-0 Vicryl. The skin was reapproximated with tiffani. Intensification demonstrated severe comminution of the fibula fracture. Due to a concern of delayed healing as a result of the comminution, it was decided to perform plate fixation. A sharp incision was performed through skin. Blunt dissection of the subcutaneous tissue down to bone. The fracture was identified. It was a severely comminuted fracture. The comminution was teased back into alignment. The comminution was too involved to fix with screw fixation. A locking plate was placed proximal and distal to the comminution to realign the fracture fragments. Suture was placed around the comminuted fracture fragments and the round the plate to keep the small fracture fragments opposed to the main bony fragments. The wound was then copiously irrigated. The skin was reapproximated with 2-0 Vicryl in the subcutaneous tissue and 3-0 nylon was used on skin. A bulky sterile dressing was applied followed by a posterior splint maintaining the foot in neutral plantigrade position. The patient tolerated procedure well without complication was brought recovery in stable condition.
--- NOTE | 2020-05-08 14:45 | RADIOLOGY REPORT (SQ) ---
EXAM DESCRIPTION: TIBIA FIBULA RIGHT; NO CHG FLUORO IMAGES COMPLETED DATE/TIME: 05/08/2020 2:15 pm REASON FOR STUDY: TIB FIB NAILING COMPARISON: Left lower extremity films 05/07/2020 FLUOROSCOPY TIME: 1.9 minutes 8 digital fluoroscopic images saved to PACS. TECHNIQUE: Intra-operative images acquired during surgical procedure to evaluate progress. NUMBER OF IMAGES: 8 digital fluoroscopic images LIMITATIONS: None. FINDINGS: Intra procedural imaging and fluoro during ORIF tibial diaphysis spiral fracture, distal f ibular diaphysis spiral fracture with hardware. Please see operative report for further details IMPRESSION: IMAGE(S) OBTAINED DURING PROCEDURE. COMMENT: Quality ID [id number]: Final reports for procedures using fluoroscopy that document radiation exp osure indices, or exposure time and number of fluorographic images (if radiation exposure indices are not available) Please consult full operative report of the attending physician for description of the procedure. TECHNICAL DOCUMENTATION: JOB ID: [id number] 2010 [employer]- All Rights Reserved Reading location - IP/workstation name: [email or web address]
--- NOTE | 2020-05-08 14:45 | RADIOLOGY REPORT (SQ) ---
EXAM DESCRIPTION: TIBIA FIBULA RIGHT; NO CHG FLUORO IMAGES COMPLETED DATE/TIME: 05/08/2020 2:15 pm REASON FOR STUDY: TIB FIB NAILING COMPARISON: Left lower extremity films 05/07/2020 FLUOROSCOPY TIME: 1.9 minutes 8 digital fluoroscopic images saved to PACS. TECHNIQUE: Intra-operative images acquired during surgical procedure to evaluate progress. NUMBER OF IMAGES: 8 digital fluoroscopic images LIMITATIONS: None. FINDINGS: Intra procedural imaging and fluoro during ORIF tibial diaphysis spiral fracture, distal f ibular diaphysis spiral fracture with hardware. Please see operative report for further details IMPRESSION: IMAGE(S) OBTAINED DURING PROCEDURE. COMMENT: Quality ID 145: Final reports for procedures using fluoroscopy that document radiation exp osure indices, or exposure time and number of fluorographic images (if radiation exposure indices are not available) Please consult full operative report of the attending physician for description of the procedure. TECHNICAL DOCUMENTATION: JOB ID: [id number] 2010 [employer]- All Rights Reserved Reading location - IP/workstation name: [id number]
[2020-05-08] MEDS: HYDROCHLOROTHIAZIDE 25 MG TABLET PO SCH (15:45)
[2020-05-08] MEDS ORDERED: OXYCODONE HCL IR 5 MG TABLET PO PRN (15:47)
[2020-05-08] MEDS ORDERED: NORMAL SALINE 1000 ML 1,000 ML IV PRN (15:49)
[2020-05-08] MEDS ORDERED: CEFAZOLIN INJ 1 GM VIAL INJ SCH (16:00)
[2020-05-08] MEDS ORDERED: DEXAMETHASONE SOD PHOSPHATE INJ 4 MG/1 ML VIAL ONE (16:02)
[2020-05-08] MEDS ORDERED: KETOROLAC TROMETHAMINE 60 MG/2 ML SDV ONE (16:02)
[2020-05-08] MEDS ORDERED: GLYCOPYRROLATE 1 MG/5 ML VIAL ONE (16:02)
[2020-05-08] MEDS ORDERED: NEOSTIGMINE METHYLSULFATE 10 MG/10 ML VIAL ONE (16:02)
[2020-05-08] MEDS ORDERED: LIDOCAINE 2% INJ-PF (20 MG/ML) 2 ML AMPUL ONE (16:02)
[2020-05-08] MEDS ORDERED: ROCURONIUM BROMIDE INJ 50 MG/5 ML VIAL IV ONE (16:02)
[2020-05-08] MEDS ORDERED: SUCCINYLCHOLINE CHLORIDE INJ 200 MG/10 ML VIAL ONE (16:02)
[2020-05-08] MEDS: CEFAZOLIN SODIUM 2 GM in DEXTROSE 5%-WATER 100 ML IV SCH (17:14)
[2020-05-08] MEDS: INSULIN GLARGINE,HUM.REC.ANLOG 1,000 UNIT/10 ML VIAL SUBCUT SCH (21:54)
[2020-05-09] MEDS: CEFAZOLIN SODIUM 2 GM in DEXTROSE 5%-WATER 100 ML IV SCH ×3 (01:39→17:14)
[2020-05-09 05:53] LABS: HEMATOCRIT 31.4 % (36.0-47.0); HEMOGLOBIN 10.5 g/dL (12.0-15.5); MEAN CORPUSCULAR HEMOGLOBIN 30.1 pg (27.0-33.4); MEAN CORPUSCULAR HGB CONC 33.6 g/dL (32.0-36.0); MEAN CORPUSCULAR VOLUME 90 fl (80-97); PLATELET COUNT 212 10^3/uL (150-450); RED CELL DISTRIBUTION WIDTH 15.2 % (11.5-14.0); WHITE BLOOD COUNT 8.2 10^3/uL (4.0-10.5)
[2020-05-09 06:36] LABS: ANION GAP 9 (5-19); BLOOD UREA NITROGEN 20 mg/dL (7-20); CALCIUM 8.6 mg/dL (8.4-10.2); CARBON DIOXIDE 25 mmol/L (22-30); CHLORIDE 107 mmol/L (98-107); GLUCOSE 163 mg/dL (75-110); POTASSIUM 4.2 mmol/L (3.6-5.0)
[2020-05-09] MEDS: INSULIN LISPRO 100 UNIT/ML 3 ML VIAL SUBCUT SCH ×4 (07:56→21:47)
[2020-05-09] MEDS: ACETAMINOPHEN 325 MG TABLET PO PRN ×2 (08:00→17:19)
[2020-05-09] MEDS ORDERED: INFLUENZA QUAD (6MOS+) 2020-21 VAC 0.5 ML SYR IM ONE (08:00)
[2020-05-09] MEDS: HYDROCHLOROTHIAZIDE 25 MG TABLET PO SCH (09:44)
[2020-05-09] MEDS: MULTIVITAMIN TABLET PO SCH (09:44)
[2020-05-09] MEDS: ENOXAPARIN SODIUM INJ 40 MG/0.4 ML DISP.SYRIN SUBCUT SCH (09:44)
[2020-05-09] MEDS: CETIRIZINE 10 MG TABLET PO SCH (09:45)
[2020-05-09] MEDS: FENOFIBRATE NANOCRYSTALLIZED 145 MG TABLET PO SCH (09:45)
[2020-05-09] MEDS: LOSARTAN POTASSIUM 25 MG TABLET PO SCH (09:45)
--- NOTE | 2020-05-09 10:27 | PDOC PROGRESS REPORT ---
Subjective Date:: 05/09/20 Subjective:: The patient is comfortable status post intramedullary nail fixation of the right tibia and ORIF of the right ankle. She has minimal discomfort in her left knee. She is able to actively flex and extend the knee and has no pain with palpation of the lateral plateau. Reason For Visit: DISTAL RIGHT TIBIA FRACTURE,HYPERTENSIVE URGENCY 1. Postoperative day #1 status post IM nail right tibia and ORIF right lateral malleolus 2. Left tibial plateau fracture superimposed on pre-existing lateral plateau depression deformity Physical Exam Vital Signs: Temp Pulse Resp BP Pulse Ox 98.2 F 101 H 16 118/97 H 94 05/09/20 08:00 05/09/20 08:00 05/09/20 08:00 05/09/20 08:00 05/09/20 08:00 Intake & Output 05/08/20 05/09/20 05/10/20 06:59 06:59 06:59 Intake Total 0 3870 Output Total 0 50 Balance 0 3820 Weight 98.5 kg 95 kg General appearance: PRESENT: no acute distress, well-developed, well-nourished Head exam: PRESENT: atraumatic, normocephalic Neck exam: ABSENT: carotid bruit, JVD, lymphadenopathy, thyromegaly Respiratory exam: PRESENT: clear to auscultation sushil. ABSENT: rales, rhonchi, wheezes Cardiovascular exam: PRESENT: RRR. ABSENT: diastolic murmur, rubs, systolic murmur Rectal exam: PRESENT: deferred Extremities exam: PRESENT: other - Right leg: The surgical dressings are clean dry and intact. Patient is able to dorsiflex and plantarflex the ankle. The patient is able to flex and extend the right knee. Compartments are soft. Musculoskeletal exam: PRESENT: other - Left knee: There is a minimal effusion present. There is no tenderness to palpation of the lateral plateau. The patient is able to fully flex and extend the knee without discomfort. Results Laboratory Results: 05/09/20 04:58 05/09/20 04:58 05/09/20 05/09/20 04:58 04:58 WBC 8.2 RBC 3.50 L Hgb 10.5 L Hct 31.4 L MCV 90 MCH 30.1 MCHC 33.6 RDW 15.2 H Plt Count 212 Sodium 141.4 Potassium 4.2 Chloride 107 Carbon Dioxide 25 Anion Gap 9 BUN 20 Creatinine 0.79 Est GFR ( Amer) > 60 Glucose 163 H Calcium 8.6 Impressions: Knee X-Ray 05/07/20 20:31 IMPRESSION: Osteopenia. Impacted lateral tibial plateau fracture which is mildly comminuted. At least 3 mm of impaction is present. Knee effusion. Previous below-knee amputation which is healed. Ankle X-Ray 05/07/20 20:32 IMPRESSION: 1. Osteopenia. 2. Fracture of the distal fibula which may be segmental. 3. Comminuted fracture of the distal tibia diaphysis with a medial butterfly fragment. There is at least 7 mm medial displacement of the distal tibia with respect to the proximal tibia. 4. Probable changes of amputation in the foot. 5. No definitive ankle fracture. Chest X-Ray 05/07/20 20:34 IMPRESSION: No evidence of acute cardiopulmonary disease. Elevated right hemidiaphragm. Prior exams are not available however prior report describes similar finding. Fluoroscopy 05/08/20 00:00 IMPRESSION: IMAGE(S) OBTAINED DURING PROCEDURE. Tibia/Fibula X-Ray 05/08/20 00:00 IMPRESSION: IMAGE(S) OBTAINED DURING PROCEDURE. Assessment & Plan - Diagnosis (2) Peripheral neuropathy Qualifiers: Peripheral neuropathy type: polyneuropathy associated with underlying disease Qualified Code(s): G63 - Polyneuropathy in diseases classified elsewhere Is this a current diagnosis for this admission?: Yes (3) Accidental fall Qualifiers: Encounter type: initial encounter Qualified Code(s): W19.XXXA - Unspecified fall, initial encounter Is this a current diagnosis for this admission?: Yes (4) Fracture of right tibia and fibula Qualifiers: Encounter type: initial encounter Fracture type: closed Qualified Code(s): S82.201A - Unspecified fracture of shaft of right tibia, initial encounter for closed fracture; S82.401A - Unspecified fracture of shaft of right fibula, initial encounter for closed fracture Is this a current diagnosis for this admission?: Yes (5) Insulin dependent diabetes mellitus Is this a current diagnosis for this admission?: Yes - Time Anticipated Discharge Disposition: Care Home Facility Anticipated Discharge Timeframe: when bed available Critical Time spent with patient: 25-34 minutes - Plan Summary Plan Summary: Postoperative day #1 status post IM nail right tibia and ORIF right lateral malleolus. Patient also sustained an acute fracture of the left lateral tibial plateau superimposed on a pre-existing lateral plateau depression deformity. The patient is doing quite well. She has minimal complaints of pain in the operative sites. The patient has excellent range of motion and minimal discomfort of the left knee despite the acute tibial plateau fracture. I have discussed with the patient and I would recommend nonoperative treatment. My concern is that operative treatment could potentially worsen range of motion in the joint with pre-existing depression deformity and arthrosis. The patient will need to remain nonweightbearing on both lower extremities for at least 6 weeks. Radiographs at 6 weeks will determine whether to allow advancement in weightbearing status. Physical therapy has been ordered for chung sfer training. The patient is currently stable for discharge. I have discussed this with the medical staff the patient is doing well from a medical standpoint as well. The patient will likely benefit from discharge to a long-term facility. She should follow-up in my office in 2 weeks following discharge for wound evaluation and suture and staple removal.
--- NOTE | 2020-05-09 10:53 | RADIOLOGY REPORT (SQ) ---
EXAM DESCRIPTION: CT LEFT LOWER EXTREMITY WITH IMAGES COMPLETED DATE/TIME: 05/09/2020 9:04 am REASON FOR STUDY: tibial plateau fx / reconstruction left knee COMPARISON: Left knee films 05/07/2020 TECHNIQUE: CT scan of the left knee performed without intravenous or oral contrast. Images reviewed with soft tissue and bone windows. Reconstructed coronal and sagittal MPR images reviewed. All vince ges stored on PACS. All CT scanners at this facility use dose modulation, iterative reconstruction, and/or weight based d osing when appropriate to reduce radiation dose to as low as reasonably achievable (ALARA). [facility]: Dose Right [facility]: CareDose [facility]: Dose Right [facility]: Teradose 4D [facility]: Smart [employer] RADIATION DOSE: CT Rad equipment meets quality standard of care and radiation dose reduction techniq ues were employed. CTDIvol: 4.7 mGy. DLP: 161 mGy-cm. mGy. LIMITATIONS: None. FINDINGS: Bones are osteopenic. Distal femur and patella are intact. There is a lateral tibial plateau fracture with displacement of the articular surface by 11 mm, best shown on sagittal image 41 and coronal image 33. Lateral tibial plateau fracture lines extend through the tibial spines and into the mid 3rd weight-be aring medial tibial plateau articular surface without depression. This is best shown on axial images 68-73. Proximal fibula is intact. There is a [id number] amputation. Soft tissue windows demonstrate a lipoma hemarthrosis in the suprapatellar recess, best shown on axia l image 43. Diffuse soft tissue swelling is present medially and laterally. No soft tissue hematoma. IMPRESSION: Depressed lateral tibial plateau fracture by about 11 mm Nondepressed medial tibial plateau fracture TECHNICAL DOCUMENTATION: JOB ID: [id number] Quality ID # [id number]: Final reports with documentation of one or more dose reduction techniques (e.g., Au tomated exposure control, adjustment of the mA and/or kV according to patient size, use of iterative reconstruction technique) 2010 [employer]- All Rights Reserved Reading location - IP/workstation name: [id number]
--- NOTE | 2020-05-09 12:08 | PDOC PROGRESS REPORT ---
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 Patient was seen on morning rounds. She is found resting in bed, comfortably, on room air. She reports that her pain is well controlled at present; has only required prn tylenol for discomfort. Patient is interested in SNF for short term rehab. She specifically denies fever, chills, chest pain, palpitations, dyspnea, abdominal pain, nausea, vomiting. She has no questions or concerns at this time. No concerns per nursing. Reason For Visit: DISTAL RIGHT TIBIA FRACTURE,HYPERTENSIVE URGENCY Physical Exam Vital Signs: Temp Pulse Resp BP Pulse Ox 98.2 F 101 H 16 118/97 H 94 05/09/20 08:00 05/09/20 08:00 05/09/20 08:00 05/09/20 08:00 05/09/20 08:00 Intake & Output 05/08/20 05/09/20 05/10/20 06:59 06:59 06:59 Intake Total 0 3870 Output Total 0 50 Balance 0 3820 Weight 98.5 kg 95 kg 95 kg General appearance: PRESENT: no acute distress, cooperative, obese, well- developed, well-nourished Head exam: PRESENT: atraumatic, normocephalic Eye exam: PRESENT: conjunctiva pink, EOMI, PERRLA. ABSENT: scleral icterus Mouth exam: PRESENT: moist, tongue midline Respiratory exam: PRESENT: clear to auscultation sushil, symmetrical, unlabored, other - room air. ABSENT: rales, rhonchi, wheezes Cardiovascular exam: PRESENT: RRR, +S1, +S2. ABSENT: diastolic murmur, rubs, systolic murmur Vascular exam: PRESENT: normal capillary refill Extremities exam: PRESENT: tenderness - RLE, other - remote left bka and right great toe amputation. RLE in short leg splint w/ omid wrap above knee.. ABSENT: calf tenderness, clubbing, pedal edema Neurological exam: PRESENT: alert, awake, oriented to person, oriented to place, oriented to time, oriented to situation, CN II-XII grossly intact. ABSENT: motor sensory deficit Psychiatric exam: PRESENT: appropriate affect, normal mood. ABSENT: homicidal ideation, suicidal ideation Skin exam: PRESENT: dry, warm, other - Shallow healing ulcer to the right kirsten ntar surface of the first metatarsal head. ABSENT: cyanosis, rash Results Laboratory Results: 05/09/20 04:58 05/09/20 04:58 05/09/20 05/09/20 04:58 04:58 WBC 8.2 RBC 3.50 L Hgb 10.5 L Hct 31.4 L MCV 90 MCH 30.1 MCHC 33.6 RDW 15.2 H Plt Count 212 Sodium 141.4 Potassium 4.2 Chloride 107 Carbon Dioxide 25 Anion Gap 9 BUN 20 Creatinine 0.79 Est GFR ( Amer) > 60 Glucose 163 H Calcium 8.6 Impressions: Knee X-Ray 05/07/20 20:31 IMPRESSION: Osteopenia. Impacted lateral tibial plateau fracture which is mildly comminuted. At least 3 mm of impaction is present. Knee effusion. Previous below-knee amputation which is healed. Ankle X-Ray 05/07/20 20:32 IMPRESSION: 1. Osteopenia. 2. Fracture of the distal fibula which may be segmental. 3. Comminuted fracture of the distal tibia diaphysis with a medial butterfly fragment. There is at least 7 mm medial displacement of the distal tibia with respect to the proximal tibia. 4. Probable changes of amputation in the foot. 5. No definitive ankle fracture. Chest X-Ray 05/07/20 20:34 IMPRESSION: No evidence of acute cardiopulmonary disease. Elevated right hemidiaphragm. Prior exams are not available however prior report describes similar finding. Fluoroscopy 05/08/20 00:00 IMPRESSION: IMAGE(S) OBTAINED DURING PROCEDURE. Tibia/Fibula X-Ray 05/08/20 00:00 IMPRESSION: IMAGE(S) OBTAINED DURING PROCEDURE. Lower Extremity CT 05/09/20 00:00 IMPRESSION: Depressed lateral tibial plateau fracture by about 11 mm Nondepressed medial tibial plateau fracture Assessment and Plan - Diagnosis (1) Fracture of right tibia and fibula Qualifiers: Encounter type: initial encounter Fracture type: closed Qualified Code(s): S82.201A - Unspecified fracture of shaft of right tibia, initial encounter for closed fracture; S82.401A - Unspecified fracture of shaft of right fibula, initial encounter for closed fracture Is this a current diagnosis for this admission?: Yes Plan: Secondary to mechanical fall. Orthopedic surgery is consulted. Primary management per Dr. Bunch. Discussed with Dr. Bunch; recommends continuing subcutaneous Lovenox at discharge until the patient is weightbearing. Patient is to remain nonweightbearing x6 weeks. Recommends SNF for short-term rehab/teaching regarding transfers. Analgesics as needed. Fall precautions. Follow-up with Dr. Bunch in 2 weeks. (2) Accidental fall Qualifiers: Encounter type: initial encounter Qualified Code(s): W19.XXXA - Unspecified fall, initial encounter Is this a current diagnosis for this admission?: Yes Plan: PT/OT post-operatively. Discharge planning consulted. Fall precautions. (3) Insulin dependent diabetes mellitus Is this a current diagnosis for this admission?: Yes Plan: A1c 7.6% Holding oral medications while admitted. Consistent carb diet. Lantus 50 units nightly. Accu-Cheks before meals and at bedtime with Humalog for sliding scale coverage. Hypoglycemia protocol in place. Registered dietitian and certified adaptive physical educator are consulted. (4) Uncontrolled hypertension Is this a current diagnosis for this admission?: Yes Plan: Losartan 25 mg daily, hydrochlorothiazide 25 mg daily. Hydralazine as needed blood pressure control. Provide for adequate pain control. (5) History of left below knee amputation Is this a current diagnosis for this admission?: Yes Plan: Fall precautions. PT/OT consultation. Discharge planning for SNF for short-term rehab at discharge. (6) Pressure ulcer Qualifiers: Pressure injury location: foot, unspecified location Pressure injury stage: stage 2 Laterality: right Qualified Code(s): L89.892 - Pressure ulcer of other site, stage 2 Is this a current diagnosis for this admission?: Yes Plan: No signs of infectious process. Open to air. Monitor for worsening. (7) Obesity (BMI 30.0-34.9) Is this a current diagnosis for this admission?: Yes Plan: Dietary discretion advised. Currently n.p.o.; will advance to a consistent carb/cardiac diet postoperatively. - Time Time Spent with patient: 35 or more minutes Medications reviewed and adjusted accordingly: Yes Anticipated Discharge Disposition: Alf Facility Anticipated Discharge Timeframe: when bed available - ortho/med cleared for discharge
[2020-05-09] MEDS: ATORVASTATIN CALCIUM 40 MG TABLET PO SCH (21:47)
[2020-05-09] MEDS: INSULIN GLARGINE,HUM.REC.ANLOG 1,000 UNIT/10 ML VIAL SUBCUT SCH (21:47)
[2020-05-09] MEDS ORDERED: (PENDING PHARMACY ID) (Rosuvastatin Calcium [Crestor] 20 MG Tablet) PO SCH (22:00)
[2020-05-10] MEDS: CEFAZOLIN SODIUM 2 GM in DEXTROSE 5%-WATER 100 ML IV SCH ×2 (01:00→11:26)
[2020-05-10 06:16] LABS: HEMATOCRIT 30.7 % (36.0-47.0); HEMOGLOBIN 10.4 g/dL (12.0-15.5); MEAN CORPUSCULAR HGB CONC 33.8 g/dL (32.0-36.0); MEAN CORPUSCULAR VOLUME 89 fl (80-97); PLATELET COUNT 217 10^3/uL (150-450); RED BLOOD COUNT 3.46 10^6/uL (3.72-5.28); RED CELL DISTRIBUTION WIDTH 14.8 % (11.5-14.0); WHITE BLOOD COUNT 7.9 10^3/uL (4.0-10.5)
[2020-05-10 06:35] LABS: ANION GAP 8 (5-19); BLOOD UREA NITROGEN 13 mg/dL (7-20); CALCIUM 8.9 mg/dL (8.4-10.2); CARBON DIOXIDE 25 mmol/L (22-30); CHLORIDE 105 mmol/L (98-107); GLUCOSE 232 mg/dL (75-110)
[2020-05-10] MEDS: INSULIN LISPRO 100 UNIT/ML 3 ML VIAL SUBCUT SCH ×4 (07:41→21:55)
[2020-05-10] MEDS: ACETAMINOPHEN 325 MG TABLET PO PRN ×2 (07:44→17:18)
[2020-05-10] MEDS ORDERED: HYDROCHLOROTHIAZIDE PO SCH (10:00)
[2020-05-10] MEDS ORDERED: [UNRECOGNIZED DRUG - OTHER] PO SCH (10:00)
[2020-05-10] MEDS ORDERED: BISOPROLOL PO SCH (10:00)
[2020-05-10] MEDS: HYDROCHLOROTHIAZIDE 12.5 MG TABLET PO SCH (11:27)
[2020-05-10] MEDS: FENOFIBRATE NANOCRYSTALLIZED 145 MG TABLET PO SCH (11:27)
[2020-05-10] MEDS: ENOXAPARIN SODIUM INJ 40 MG/0.4 ML DISP.SYRIN SUBCUT SCH (11:27)
[2020-05-10] MEDS: ATENOLOL 50 MG TABLET PO SCH (11:28)
[2020-05-10] MEDS: MULTIVITAMIN TABLET PO SCH (11:28)
[2020-05-10] MEDS: LOSARTAN POTASSIUM 25 MG TABLET PO SCH (11:28)
[2020-05-10] MEDS: CETIRIZINE 10 MG TABLET PO SCH (11:28)
--- NOTE | 2020-05-10 14:08 | PDOC TRANSFER SUMMARY ---
Impression - Admit/DC Date/PCP Admission Date/Primary Care Provider: 05/07/20 23:26 JING MORENO DPM Discharge Date: 05/10/20 - Discharge Diagnosis (1) Fracture of right tibia and fibula Is this a current diagnosis for this admission?: Yes (2) Accidental fall Is this a current diagnosis for this admission?: Yes (3) Insulin dependent diabetes mellitus Is this a current diagnosis for this admission?: Yes (4) Uncontrolled hypertension Is this a current diagnosis for this admission?: Yes (5) History of left below knee amputation Is this a current diagnosis for this admission?: Yes (6) Pressure ulcer Is this a current diagnosis for this admission?: Yes (7) Obesity (BMI 30.0-34.9) Is this a current diagnosis for this admission?: Yes (8) Fracture of left tibial plateau Is this a current diagnosis for this admission?: Yes - Additional Information Resuscitation Status: Full Code Discharge Diet: Diabetic Discharge Activity: Activity As Tolerated, Balance Activity w/Rest, Slowly Increase Activity, Supervised Activity Referrals: JING MORENO DPM [Primary Care Provider] - Follow up as needed (Follow up within 1 week.) CHRISTIANO BUNCH MD [ACTIVE STAFF] - (Follow up in 2 weeks.) Prescriptions: Enoxaparin Sodium [Lovenox Inj 40 mg/0.4 ml Disp.syrin] 40 mg SUBCUT DAILY #30 disp.syrin Oxycodone HCl [Oxy-Ir 5 mg Tablet] 5 mg PO Q4HP PRN #20 tablet PRN Reason: Home Medications: Cetirizine HCl [Zyrtec 10 mg Tablet] 10 mg PO DAILY 12/27/19 Fenofibrate Nanocrystallized [Tricor 145 mg Tablet] 145 mg PO DAILY 12/27/19 Losartan Potassium [Cozaar] 25 mg PO DAILY 12/27/19 Rosuvastatin Calcium [Crestor] 20 mg PO QHS 12/27/19 Insulin Glargine,Hum.rec.anlog [Lantus Insulin 100 Unit/1 ml 10 ml] 50 unit SUBCUT Q12 #4 vial 12/30/19 Metformin HCl [Glucophage 500 mg Tablet] 1,000 mg PO BIDACBS #120 tablet 12/30/19 Multivitamin [Tab-A-Maggie (Multiple Vitamin) Tablet] 1 tab PO DAILY #0 tablet 12/30/19 Aspirin [Ecotrin 81 mg EC Tablet] 81 mg PO DAILY 05/08/20 Bisoprolol/Hydrochlorothiazide [Bisoprolol-Hctz 10-6.25 mg Tab] 1 each PO DAILY 05/08/20 Insulin Aspart [Novolog Insulin (Aspart) 100 unit/mL] 35 unit SUBCUT MEALS 05/08/20 Acetaminophen [Tylenol 325 mg Tablet] 650 mg PO Q4HP PRN tablet 05/10/20 Enoxaparin Sodium [Lovenox Inj 40 mg/0.4 ml Disp.syrin] 40 mg SUBCUT DAILY #30 disp.syrin 05/10/20 Oxycodone HCl [Oxy-Ir 5 mg Tablet] 5 mg PO Q4HP PRN #20 tablet 05/10/20 History of Present Illiness History of Present Illness: Per H&P by Dr. Morataya: MARCELA MARSHALL is a 64 year old female with multiple medical comorbidities including hypertension, insulin-dependent type 2 diabetes mellitus, and history of left below the knee amputation, who presents with pain and deformity in her right lower extremity after a mechanical fall at home. X- rays reveal a distal tibia-fibula fracture. Her hemoglobin A1c is only 7.6, but her blood sugar was over 400. She was also hypertensive, possibly from pain. Due to the fact that she had a couple of uncontrolled chronic medical problems, I agreed to admit this patient to the hospitalist service with orthopedics consulting. Hospital Course Hospital Course: (1) Fracture of right tibia and fibula Secondary to mechanical fall. Orthopedic surgery was consulted. Primary management per Dr. Bunch. Discussed with Dr. Bunch; recommends continuing subcutaneous Lovenox at discharge until the patient is weightbearing. Patient is to remain nonweightbearing x6 weeks. Recommends SNF for short-term rehab/teaching regarding transfers; Discharge planning is consulted. Analgesics as needed; pain is well controlled w/ tylenol. Fall precautions. Follow-up with Dr. Bunch in 2 weeks. (2) Accidental fall PT/OT post-operatively. Discharge planning consulted; plan for SNF at discharge. Fall precautions. (3) Insulin dependent diabetes mellitus A1c 7.6% Consistent carb diet. Resume home medication regiment of Metformin, Lantus, Humalog with meals and sliding scale coverage. Registered dietitian and asthma educator were consulted. (4) Uncontrolled hypertension Now with adequate blood pressure control. Resume home dose bisoprolol/hctz and losartan. (5) History of left below knee amputation Fall precautions. PT/OT consultation. Discharge planning for SNF for short-term rehab at discharge. (6) Pressure ulcer Chronic; POA. No signs of infectious process. Open to air. Monitor for worsening. (7) Obesity (BMI 30.0-34.9) Dietary discretion advised. Consistent carb diet. structural steel fitter and asthma educator consulted. (8) Left tibial plateau fracture Nonweightbearing x6 weeks per Dr. Bunch. Outpatient follow-up in 2 weeks. Physical Exam Vital Signs: Temp Pulse Resp BP Pulse Ox 98.2 F 96 19 140/68 H 94 05/10/20 10:59 05/10/20 10:59 05/10/20 10:59 05/10/20 10:59 05/10/20 10:59 Intake & Output 05/09/20 05/10/20 05/11/20 06:59 06:59 06:59 Intake Total 3870 861 520 Output Total 50 Balance 3820 861 520 Weight 95 kg 95 kg General appearance: PRESENT: no acute distress, cooperative, obese, well- developed, well-nourished Head exam: PRESENT: atraumatic, normocephalic Eye exam: PRESENT: conjunctiva pink, EOMI, PERRLA. ABSENT: scleral icterus Mouth exam: PRESENT: moist, tongue midline Respiratory exam: PRESENT: clear to auscultation sushil, symmetrical, unlabored, other - room air. ABSENT: rales, rhonchi, wheezes Cardiovascular exam: PRESENT: RRR, +S1, +S2. ABSENT: diastolic murmur, rubs, systolic murmur Vascular exam: PRESENT: normal capillary refill Gentrourinary exam: ABSENT: indwelling catheter Extremities exam: PRESENT: other - remote left bka and right great toe amputation. ABSENT: calf tenderness, clubbing, full ROM - RLE; short leg splint and omid wrap in place, pedal edema, +1 edema Musculoskeletal exam: ABSENT: ambulatory - Nonweightbearing x6 weeks Neurological exam: PRESENT: alert, awake, oriented to person, oriented to place, oriented to time, oriented to situation, CN II-XII grossly intact. ABSENT: motor sensory deficit Psychiatric exam: PRESENT: appropriate affect, normal mood. ABSENT: homicidal ideation, suicidal ideation Skin exam: PRESENT: dry, warm, other - Shallow healing ulcer to the right plantar surface of the first metatarsal head (POA).. ABSENT: cyanosis, intact, rash Results Laboratory Results: WBC 7.9 10^3/uL (4.0-10.5) 05/10/20 04:58 RBC 3.46 10^6/uL (3.72-5.28) L 05/10/20 04:58 Hgb 10.4 g/dL (12.0-15.5) L 05/10/20 04:58 Hct 30.7 % (36.0-47.0) L 05/10/20 04:58 MCV 89 fl (80-97) 05/10/20 04:58 MCH 30.0 pg (27.0-33.4) 05/10/20 04:58 MCHC 33.8 g/dL (32.0-36.0) 05/10/20 04:58 RDW 14.8 % (11.5-14.0) H 05/10/20 04:58 Plt Count 217 10^3/uL (150-450) 05/10/20 04:58 Lymph % (Auto) 19.3 % (13-45) 05/07/20 20:25 [place] % (Auto) 6.0 % (3-13) 05/07/20 20:25 Eos % (Auto) 4.2 % (0-6) 05/07/20 20:25 Baso % (Auto) 0.6 % (0-2) 05/07/20 20:25 Absolute Neuts (auto) 5.6 10^3/uL (1.7-8.2) 05/07/20 20:25 Absolute Lymphs (auto) 1.5 10^3/uL (0.5-4.7) 05/07/20 20:25 Absolute Monos (auto) 0.5 10^3/uL (0.1-1.4) 05/07/20 20:25 Absolute Eos (auto) 0.3 10^3/uL (0.0-0.6) 05/07/20 20:25 Absolute Basos (auto) 0.1 10^3/uL (0.0-0.2) 05/07/20 20:25 Seg Neutrophils % 69.9 % (42-78) 05/07/20 20:25 PT 13.1 SEC (11.4-15.4) 05/08/20 04:34 INR 0.97 05/08/20 04:34 APTT 28.7 SEC (23.5-35.8) 05/08/20 04:34 Sodium 138.1 mmol/L (137-145) 05/10/20 04:58 Potassium 4.0 mmol/L (3.6-5.0) 05/10/20 04:58 Chloride 105 mmol/L (98-107) 05/10/20 04:58 Carbon Dioxide 25 mmol/L (22-30) 05/10/20 04:58 Anion Gap 8 (5-19) 05/10/20 04:58 BUN 13 mg/dL (7-20) 05/10/20 04:58 Creatinine 0.66 mg/dL (0.52-1.25) 05/10/20 04:58 Est GFR ( Amer) > 60 (>60) 05/10/20 04:58 Est GFR (MDRD) Non-Af > 60 (>60) 05/10/20 04:58 Glucose 232 mg/dL (75-110) H 05/10/20 04:58 POC Glucose 299 mg/dL (70-110) H 05/10/20 11:01 Hemoglobin A1c % 7.6 % (4.7-6.0) H 05/07/20 20:25 Calcium 8.9 mg/dL (8.4-10.2) 05/10/20 04:58 Magnesium 1.6 mg/dL (1.6-2.3) 05/07/20 20:25 Total Bilirubin 0.4 mg/dL (0.2-1.3) 05/07/20 20:25 Direct Bilirubin 0.2 mg/dL (0.0-0.4) 05/07/20 20:25 Neonat Total Bilirubin Not Reportable 05/07/20 20:25 Neonat Direct Bilirubin Not Reportable 05/07/20 20:25 Neonat Indirect Bili Not Reportable 05/07/20 20:25 AST 76 U/L (14-36) H 05/07/20 20:25 ALT 59 U/L (<35) H 05/07/20 20:25 Alkaline Phosphatase 39 U/L (38-126) 05/07/20 20:25 Total Protein 6.8 g/dL (6.3-8.2) 05/07/20 20:25 Albumin 4.3 g/dL (3.5-5.0) 05/07/20 20:25 Urine Color YELLOW 05/07/20 22:05 Urine Appearance CLEAR 05/07/20 22:05 Urine pH 7.0 (5.0-9.0) 05/07/20 22:05 Ur Specific [place] 1.023 05/07/20 22:05 Urine Protein NEGATIVE mg/dL (NEGATIVE) 05/07/20 22:05 Urine Glucose (UA) >=500 mg/dL (NEGATIVE) H 05/07/20 22:05 Urine Ketones NEGATIVE mg/dL (NEGATIVE) 05/07/20 22:05 Urine Blood NEGATIVE (NEGATIVE) 05/07/20 22:05 Urine Nitrite NEGATIVE (NEGATIVE) 05/07/20 22:05 Urine Bilirubin NEGATIVE (NEGATIVE) 05/07/20 22:05 Urine Urobilinogen NEGATIVE mg/dL (<2.0) 05/07/20 22:05 Ur Leukocyte Esterase TRACE (NEGATIVE) H 05/07/20 22:05 Urine WBC (Auto) 5 /HPF 05/07/20 22:05 Urine RBC (Auto) 3 /HPF 05/07/20 22:05 U Hyaline Cast (Auto) 1 /LPF 05/07/20 22:05 Urine Bacteria (Auto) TRACE /HPF 05/07/20 22:05 Squamous Epi Cells Auto <1 /HPF 05/07/20 22:05 Urine Mucus (Auto) RARE /LPF 05/07/20 22:05 Urine Ascorbic Acid NEGATIVE (NEGATIVE) 05/07/20 22:05 COVID-19 Source Cancelled 05/07/20 21:17 COVID-19 ([facility]) Cancelled 05/07/20 21:17 Influenza A (RT-PCR) NEGATIVE (NEGATIVE) 05/07/20 21:17 Influenza B (RT-PCR) NEGATIVE (NEGATIVE) 05/07/20 21:17 RSV (RT-PCR) NEGATIVE (NEGATIVE) 05/07/20 21:17 SARS-CoV-2 Rap RNA(RT-PCR) NEGATIVE (NEGATIVE) 05/07/20 21:17 Blood Type AB POSITIVE 05/07/20 20:25 Antibody Screen NEGATIVE 05/07/20 20:25 Impressions: Knee X-Ray 05/07/20 20:31 IMPRESSION: Osteopenia. Impacted lateral tibial plateau fracture which is mildly comminuted. At least 3 mm of impaction is present. Knee effusion. Previous below-knee amputation which is healed. Ankle X-Ray 05/07/20 20:32 IMPRESSION: 1. Osteopenia. 2. Fracture of the distal fibula which may be segmental. 3. Comminuted fracture of the distal tibia diaphysis with a medial butterfly fragment. There is at least 7 mm medial displacement of the distal tibia with respect to the proximal tibia. 4. Probable changes of amputation in the foot. 5. No definitive ankle fracture. Tibia/Fibula X-Ray 05/07/20 20:32 IMPRESSION: 1. Comminuted fracture of the distal tibia diaphysis with a medial butterfly fragment. There is medial displacement of the distal tibia with mild apex anterior angulation at the fracture. 2. Fracture of the distal fibula with apex medial angulation. This is proximal to the ankle joint. 3. Osteopenia. Chest X-Ray 05/07/20 20:34 IMPRESSION: No evidence of acute cardiopulmonary disease. Elevated right hemidiaphragm. Prior exams are not available however prior report describes similar finding. Fluoroscopy 05/08/20 00:00 IMPRESSION: IMAGE(S) OBTAINED DURING PROCEDURE. Tibia/Fibula X-Ray 05/08/20 00:00 IMPRESSION: IMAGE(S) OBTAINED DURING PROCEDURE. Lower Extremity CT 05/09/20 00:00 IMPRESSION: Depressed lateral tibial plateau fracture by about 11 mm Nondepressed medial tibial plateau fracture Plan Plan of Treatment: Follow-up with primary care provider within 1 week. Follow-up with Dr. Bunch in 2 weeks for wound check and staple removal. Nonweightbearing x6 weeks. Continue Lovenox for DVT prophylaxis until cleared to ambulate by orthopedic surgeon. Take other medications as prescribed. Eat a consistent carb diet. Return to the emergency department, as needed, for concerning symptoms. Time Spent: Greater than 30 Minutes Stroke Is this a Stroke Patient?: No Acute Heart Failure Is this a Heart Failure Patient?: No
[2020-05-10] MEDS ORDERED: INSULIN LISPRO 100 UNIT/ML 3 ML VIAL SUBCUT ONE (17:05)
[2020-05-10] MEDS: METFORMIN HCL 500 MG TABLET PO SCH (17:12)
[2020-05-10] MEDS: INSULIN GLARGINE,HUM.REC.ANLOG 1,000 UNIT/10 ML VIAL SUBCUT SCH (21:56)
[2020-05-10] MEDS: ATORVASTATIN CALCIUM 40 MG TABLET PO SCH (21:56)
[2020-05-11] MEDS: ACETAMINOPHEN 325 MG TABLET PO PRN (05:36)
[2020-05-11] MEDS: INSULIN LISPRO 100 UNIT/ML 3 ML VIAL SUBCUT SCH ×3 (07:54→16:26)
[2020-05-11] MEDS: METFORMIN HCL 500 MG TABLET PO SCH ×2 (07:55→16:09)
[2020-05-11] MEDS ORDERED: INSULIN GLARGINE,HUM.REC.ANLOG 1,000 UNIT/10 ML VIAL SUBCUT SCH (10:00)
[2020-05-11] MEDS: ENOXAPARIN SODIUM INJ 40 MG/0.4 ML DISP.SYRIN SUBCUT SCH (10:16)
[2020-05-11] MEDS: FENOFIBRATE NANOCRYSTALLIZED 145 MG TABLET PO SCH (10:17)
[2020-05-11] MEDS: HYDROCHLOROTHIAZIDE 12.5 MG TABLET PO SCH (10:17)
[2020-05-11] MEDS: MULTIVITAMIN TABLET PO SCH (10:17)
[2020-05-11] MEDS: CETIRIZINE 10 MG TABLET PO SCH (10:17)
[2020-05-11] MEDS: ATENOLOL 50 MG TABLET PO SCH (10:17)
[2020-05-11] MEDS: LOSARTAN POTASSIUM 25 MG TABLET PO SCH (10:17)
--- NOTE | 2020-05-11 13:54 | PDOC PROGRESS REPORT ---
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 Patient was seen on morning rounds. She is found resting in bed, comfortably, on room air. She reports that her pain is well controlled at present; has only required prn tylenol for discomfort. Patient is encouraged by her physical therapy progress; continues to remain interested in SNF. She specifically denies fever, chills, chest pain, palpitations, dyspnea, abdominal pain, nausea, vomiting. She has no questions or concerns at this time. No concerns per nursing. Reason For Visit: DISTAL RIGHT TIBIA FRACTURE,HYPERTENSIVE URGENCY Physical Exam Vital Signs: Temp Pulse Resp BP Pulse Ox 98.1 F 80 16 132/58 H 95 05/11/20 00:00 05/11/20 07:00 05/11/20 00:00 05/11/20 00:00 05/11/20 00:00 Intake & Output 05/10/20 05/11/20 05/12/20 06:59 06:59 06:59 Intake Total 861 1560 Balance 861 1560 Weight 95 kg 95 kg General appearance: PRESENT: no acute distress, cooperative, obese, well- developed, well-nourished Head exam: PRESENT: atraumatic, normocephalic Eye exam: PRESENT: conjunctiva pink, EOMI, PERRLA. ABSENT: scleral icterus Mouth exam: PRESENT: moist, tongue midline Respiratory exam: PRESENT: clear to auscultation sushil, symmetrical, unlabored, other - Room air. ABSENT: rales, rhonchi, wheezes Cardiovascular exam: PRESENT: RRR. ABSENT: diastolic murmur, rubs, systolic murmur Vascular exam: PRESENT: normal capillary refill GI/Abdominal exam: PRESENT: normal bowel sounds, soft. ABSENT: distended, guarding, mass, organolmegaly, rebound, tenderness Rectal exam: PRESENT: deferred Extremities exam: PRESENT: tenderness - RLE, other - remote left bka and right great toe amputation. ABSENT: calf tenderness, clubbing, full ROM - short leg splint and omid wrap in place, pedal edema Musculoskeletal exam: ABSENT: ambulatory - Nonweightbearing x6 weeks Neurological exam: PRESENT: alert, awake, oriented to person, oriented to place, oriented to time, oriented to situation, CN II-XII grossly intact. ABSENT: motor sensory deficit Psychiatric exam: PRESENT: appropriate affect, normal mood. ABSENT: homicidal ideation, suicidal ideation Skin exam: PRESENT: dry, warm, other - Shallow healing ulcer to the right plantar surface of the first metatarsal head (POA). ABSENT: cyanosis, intact, rash Results Laboratory Results: 05/10/20 04:58 05/10/20 04:58 Impressions: Knee X-Ray 05/07/20 20:31 IMPRESSION: Osteopenia. Impacted lateral tibial plateau fracture which is mildly comminuted. At least 3 mm of impaction is present. Knee effusion. Previous below-knee amputation which is healed. Ankle X-Ray 05/07/20 20:32 IMPRESSION: 1. Osteopenia. 2. Fracture of the distal fibula which may be segmental. 3. Comminuted fracture of the distal tibia diaphysis with a medial butterfly fragment. There is at least 7 mm medial displacement of the distal tibia with respect to the proximal tibia. 4. Probable changes of amputation in the foot. 5. No definitive ankle fracture. Chest X-Ray 05/07/20 20:34 IMPRESSION: No evidence of acute cardiopulmonary disease. Elevated right hemidiaphragm. Prior exams are not available however prior report describes similar finding. Fluoroscopy 05/08/20 00:00 IMPRESSION: IMAGE(S) OBTAINED DURING PROCEDURE. Tibia/Fibula X-Ray 05/08/20 00:00 IMPRESSION: IMAGE(S) OBTAINED DURING PROCEDURE. Lower Extremity CT 05/09/20 00:00 IMPRESSION: Depressed lateral tibial plateau fracture by about 11 mm Nondepressed medial tibial plateau fracture Assessment and Plan - Diagnosis (1) Fracture of right tibia and fibula Qualifiers: Encounter type: initial encounter Fracture type: closed Qualified Code(s): S82.201A - Unspecified fracture of shaft of right tibia, initial encounter for closed fracture; S82.401A - Unspecified fracture of shaft of right fibula, initial encounter for closed fracture Is this a current diagnosis for this admission?: Yes Plan: Secondary to mechanical fall. Orthopedic surgery is consulted. Primary management per Dr. Bunch. Discussed with Dr. Bunch; recommends continuing subcutaneous Lovenox at discharge until the patient is weightbearing. Patient is to remain nonweightbearing x6 weeks. Recommends SNF for short-term rehab/teaching regarding transfers. Analgesics as needed. Fall precautions. Follow-up with Dr. Bunch in 2 weeks. (2) Accidental fall Qualifiers: Encounter type: initial encounter Qualified Code(s): W19.XXXA - Unspecified fall, initial encounter Is this a current diagnosis for this admission?: Yes Plan: PT/OT post-operatively. Discharge planning consulted. Fall precautions. (3) Insulin dependent diabetes mellitus Is this a current diagnosis for this admission?: Yes Plan: A1c 7.6% Resume home dose metformin. Consistent carb diet. Lantus 50 units nightly. Accu-Cheks before meals and at bedtime with Humalog for sliding scale coverage. Hypoglycemia protocol in place. Registered dietitian and public health educator are consulted. (4) Uncontrolled hypertension Is this a current diagnosis for this admission?: Yes Plan: Now with adequate blood pressure control. Resume home dose bisoprolol/hctz and losartan. Provide for adequate pain control. (5) History of left below knee amputation Is this a current diagnosis for this admission?: Yes Plan: Fall precautions. PT/OT consultation. Discharge planning for SNF for short-term rehab at discharge. (6) Pressure ulcer Qualifiers: Pressure injury location: foot, unspecified location Pressure injury stage: stage 2 Laterality: right Qualified Code(s): L89.892 - Pressure ulcer of other site, stage 2 Is this a current diagnosis for this admission?: Yes Plan: No signs of infectious process. Open to air. Monitor for worsening. (7) Obesity (BMI 30.0-34.9) Is this a current diagnosis for this admission?: Yes Plan: Dietary discretion advised. Currently n.p.o.; will advance to a consistent carb/cardiac diet postoperatively. (8) Fracture of left tibial plateau Is this a current diagnosis for this admission?: Yes Plan: Nonweightbearing until cleared by Dr. Bunch. Continue range of motion exercises. Follow-up in 2 weeks. - Time Time Spent with patient: 25-34 minutes Medications reviewed and adjusted accordingly: Yes Anticipated Discharge Disposition: Care Home Facility Anticipated Discharge Timeframe: when bed available
[2020-05-11 21:22] VITALS: BP 123/40
== END 2020-05-11 17:45 | DRG 493 ==
LOC: ER 20:14 → EH 23:26 → 4N 05-08 02:25
PROVIDERS: ADMIT Family Medicine; ATTEND Registered Nurse
PROC: 0QHG06Z Insertion of Intramedullary Internal Fixation Device into Right Tibia, Open Approach (ICD-10-PCS; 2020-05-08)
PROC: 0QSG04Z Reposition Right Tibia with Internal Fixation Device, Open Approach (ICD-10-PCS; principal; 2020-05-08 10:00)
PROC: 3E02340 Introduction of Influenza Vaccine into Muscle, Percutaneous Approach (ICD-10-PCS; 2020-05-11)
DX: S82.51XA Displaced fracture of medial malleolus of right tibia, initial encounter for closed fracture (principal); S82.201A Unspecified fracture of shaft of right tibia, initial encounter for closed fracture; I10 Essential (primary) hypertension; E11.42 Type 2 diabetes mellitus with diabetic polyneuropathy; E66.9 Obesity, unspecified; M20.41 Other hammer toe(s) (acquired), right foot; L89.892 Pressure ulcer of other site, stage 2; E78.5 Hyperlipidemia, unspecified; Z20.828 Contact with and (suspected) exposure to other viral communicable diseases; Z79.4 Long term (current) use of insulin; Z89.512 Acquired absence of left leg below knee; Z89.411 Acquired absence of right great toe; Z83.3 Family history of diabetes mellitus; Z82.49 Family history of ischemic heart disease and other diseases of the circulatory system; Z79.82 Long term (current) use of aspirin; Z79.899 Other long term (current) drug therapy; Z88.6 Allergy status to analgesic agent; Z68.34 Body mass index [BMI] 34.0-34.9, adult; Z97.14 Presence of artificial left leg (complete) (partial); W01.0XXA Fall on same level from slipping, tripping and stumbling without subsequent striking against object, initial encounter; Y92.009 Unspecified place in unspecified non-institutional (private) residence as the place of occurrence of the external cause; Z23 Encounter for immunization
CPT/HCPCS: 01392; 36415; 71045; 80048; 80053; 81001; 82962; 83036; 83735; 85025; 85027; 85610; 85730; 86850; 86900; 86901; 90471; 90686; 93005; 93010; 94799; 96360; 96361; 96372; 99140; 99285; 0241U; C1713; C1769; C9803; G0008; J0330; J0690; J1100; J1170; J1650; J1815; J1885; J2250; J2405; J2704; J2710; J3010; J3490; J7030; J7060; L1830